=== PATIENT | female | born 1950 | race Caucasian/White ===

== ENCOUNTER 2024-04-24 14:29 | Inpatient (IN) | payer OTHER ==
[2024-04-25 03:29] LABS: Sqamous Epithelial <5 /HPF (None Seen); Urine Bacteria None Seen /HPF (<20); Urine Bilirubin NEGATIVE (Negative); Urine Blood Negative (Negative); Urine Clarity Turbid (Clear); Urine Color Yellow (Yellow); Urine Culture Reflex Order NOT NEEDED; Urine Glucose NEGATIVE (Negative); Urine Ketones NEGATIVE (Negative); Urine Microscopic Reflex YN ORDER UMIC; Urine Mucus Slight /HPF (None Seen); Urine Nitrite NEGATIVE (Negative); Urine Protein NEGATIVE (Negative); Urine RBC <5 /HPF (None Seen); Urine Urobilinogen 1+ (Normal); Urine WBC <5 /HPF (<5)
[2024-04-25 06:08] VITALS: BMI 46.8
[2024-04-25] MEDS ORDERED: ONDANSETRON 4 MG (ODT) TAB PO PRN (06:21)
[2024-04-25] MEDS: LEVOTHYROXINE SOD 0.1 MG TAB PO SCH (07:11)
[2024-04-25] MEDS: LEVOTHYROXINE SOD 0.075 MG TAB PO SCH (07:11)
[2024-04-25] MEDS: INSULIN REGULAR (HUMAN) 100 UNIT/ML SQ SCH (07:12)
[2024-04-25 07:40] LABS: Absolute Eosinophils 0.1 K/uL (0-0.5); Absolute Lymphocytes (CBC) 2.5 K/uL (0.7-4.9); Absolute Monocytes 0.6 K/uL (0.1-1.3); Absolute Neutrophil 2.3 K/uL (1.8-8.0); Basophils % 0.6 % (0-1.3); Eosinophils % 1.8 % (0-4.4); Hematocrit 36.3 % (36.0-45.0); Hemoglobin 11.8 g/dL (12.0-15.0); Lymphocytes % 45.1 % (15.3-44.8); MCH 27.6 pg (27.0-35.0); MCHC 32.6 g/dL (32.0-36.0); MCV 84.8 fL (80-100); MPV 7.7 fL (7.6-11.3); Monocytes % 11.2 % (3.3-12.3); Neutrophils % 41.3 % (41.7-73.7); Nucleated Red Blood Cells % 0.1 % (0-0); Platelets 270 thou/uL (152-406); RBC Red Blood Cell Count 4.28 M/uL (3.86-4.86); Red Cell Distribution Width 22.7 % (12.1-15.2)
[2024-04-25] MEDS: FERROUS SULFATE 325 MG TAB PO SCH (07:47)
[2024-04-25] MEDS: lisinopriL 10 MG TAB PO SCH (07:47)
[2024-04-25] MEDS: APIXABAN 5 MG TABLET PO SCH (07:47)
[2024-04-25] MEDS: ESCITALOPRAM 20 MG TAB PO SCH (07:47)
[2024-04-25 07:56] LABS: Albumin 2.9 g/dL (3.4-5.0); Anion Gap 8.4 mEq/L (5.0-15.0); Potassium 3.4 mEq/L (3.5-5.1); Prealbumin 15.2 mg/dL (20-40)
[2024-04-25 08:29] LABS: Blood Morphology Comment NOTED (NOT SEEN); Platelet Estimate ADEQ; White Blood Cell Scan OK (OK)
[2024-04-25 08:30] LABS: Anisocytosis 1+
[2024-04-25] MEDS: FAMOTIDINE 20 MG TAB PO SCH (09:46)
[2024-04-25] MEDS: ATORVASTATIN 80 MG TAB PO SCH (19:33)
--- NOTE | 2024-04-26 01:02 | HP ---
Date of Admission: 04/25/2024 Time Of Service: 1 p.m. Chief Complaint: "I had a stroke, my left side is weak." History Of Present Illness: Ms. Gottlieb is a 73-year-old patient. She goes by Shorty. She has a h istory of hypertension, dyslipidemia, atrial fibrillation, on Eliquis, dementia, prior bilateral occi pital bilateral cerebellar strokes, right parietal stroke, and morbid obesity. On the 21 of April, she developed more left-sided numbness, weakness, and was seen and eventually life flighted to [facility]. Their evaluation showed the chronic prior strokes as noted with left-sided drif t along with dysmetria and ataxia of the lower extremity on the left. CT scan revealed the chronic i nfarcts, bilateral occipital, bilateral cerebellar, and right parietal strokes. There was no large v essel occlusion. There was some attenuation of the peripheral branches of the posterior cerebral art eries. Her NIH Stroke Scale was repeated and showed she did not have significant left-sided drift, b ut numbness in the face, arm, leg, did improve. TNK was not given as she was already on Eliquis. In tra-arterial thrombolysis also done. She had, however, an MRI which showed an acute right MCA territ ory ischemic infarct involving the right parietotemporal lobe and posterior insular cortex. The nelson sthoracic echocardiogram showed ejection fraction 55% to 60%, and etiology of her stroke was felt to be due to cardioembolic nature and she has actually been noncompliant, only taking the Eliquis once d aily instead of twice daily. She was resumed on Eliquis for atrial fibrillation full dose and educat ed on the importance of being compliant with medications. The patient did state she had lost her hus band 2 years ago and having difficult time with depression and was on Lexapro and that was increased. She was continued on atorvastatin for dyslipidemia, hydration given, she did have stage 2 chronic k idney disease. She has lisinopril for hypertension, proton pump inhibitor, and she had diabetic diet and was addressed as well. She did previously ambulate independently with a single prong cane. She does have a rolling walker and a scooter due to previous strokes. At this point, she requires stand by assistance for eating, grooming, supervision for bed mobility, moderate assistance for upper body dressing, lower body dressing, and toileting, maximum assistance for transferring, moderate assistanc e for ambulating about 60 feet with a rolling walker. She does have some short-term memory and diffi culty with articulation. She is now functioning well below her baseline level and is now admitted to the inpatient rehabilitation unit for physical, occupational, and speech therapy to help her return to her prior level of functioning and decrease the risk of rehospitalization. Past Medical History: As noted above. Allergies: SULFA DRUGS. Medications: Tylenol 650 mg every 4 hours as needed, Eliquis 5 mg twice daily, Lipitor 80 mg at bedt cristina, Tums 500 mg 4 times daily as needed, Lexapro 20 mg daily, Pepcid 20 mg twice daily, ferrous sulf ate 325 mg daily, levothyroxine 0.175 mg daily, Prinivil 10 mg daily, melatonin 3 mg at bedtime, Zofr an 4 mg every 4 hours as needed, Senokot 8.6 mg twice daily, and tramadol 50 mg every 6 hours. Laboratory Studies: White blood cell count 5.6, hemoglobin 11.8, platelets 270. Sodium 143, potassi um 3.4, chloride 108, carbon dioxide 30, BUN is 7, creatinine 0.71, glucose ranged from 92 to 124, ca lcium 8.6, magnesium 2.0, prealbumin 2.9, albumin 15.2. Urinalysis showed turbid clarity, 1+ urobili nogen, otherwise unremarkable. Peripheral smear is okay. Imaging: Brain MRI without contrast on 04/21 shows acute right MCA territory ischemic infarct involv ing the right parietotemporal lobe and the posterior insular cortex. There was no hemorrhagic transf ormation. There are chronic bilateral occipital and cerebellar areas of encephalomalacia from prior ischemic strokes. Family History: Noncontributory. Social History: The patient lives in a single family home with children. No acute issues in terms o f fevers, chills, nausea, vomiting. Some of course difficulty with controlling things in the left carranza nd and otherwise no myalgias, arthralgias, rash. Current Level Of Functioning: Currently, eating is at setup assistance, grooming setup assistance, m aximum assistance for bathing, moderate assistance for upper and lower body dressing and donning and doffing footwear. Maximal assistance for toilet transfers, bed and shower transfers, ambulation 6 fe et moderate assistance with a rolling walker. Physical Examination: Vital Signs: Blood pressure is 127/60, pulse 62, respiratory rate 16, temperature 98.3, oxygen satur ation 95%. General: Ms. Mtz again is sitting in a chair. HEENT: She is normocephalic, atraumatic. Sclerae anicteric. Oropharynx pink and moist. Heart: Irregularly irregular. Abdomen: Soft. Extremities: Show no significant clubbing, cyanosis, or edema. She has loss of proprioception in le ft upper extremity. She has good strength 4/5 proximally and distally in left upper and lower extrem ity, right side actually around 4/5 as well. She has some mild dysmetria in the upper extremity and in the lower extremity on the left. Rehab And Medical Assessment And Plan: Ms. Mtz is a 73-year-old patient, admitted to the [facility] rehabilitation unit with impairment category 01 stroke. Her impairment group code is 01.1, left herber dy involvement, right brain. Her etiologic diagnosis is right MCA territory infarct. She does have comorbidities of decreased mobility, decreased physical functioning, atrial fibrillation, dyslipidemi a, GE reflux, iron deficiency, hypothyroidism, mild pain with of course hypertension. Plan: She will have physical, occupational, and speech therapy 3.5 hours, 5 of 7 days. She will con tinue with all comorbid condition medications which have been noted for hypertension, for hypothyroid ism, managing pain, stroke risk, for GE reflux, and for depression. Comorbidities That Are Impacting Rehabilitation: As noted, the patient did lose her and has been somewhat depressed. She is on antidepressants and that may be adjusted as appropriate. She lucas s have atrial fibrillation, on anticoagulation, is at risk of bleeding, and fall precautions to be ad hered to at all times. Rehab Specific Plan: Ms. Mtz will have physical, occupational, and speech therapy for 3.5 hours, 5 of 7 days, with transferring from bed to chair, to toilet, to wheelchair, on and off the toilet, an d in and out of shower. Also with dressing upper and lower body, donning and doffing footwear. Also with making safe decisions and to ensure she is able to swallow appropriately without risk of aspira tion. Ms. Mtz has a good understanding of the process of admission to the inpatient rehabilitation unit and how she will benefit from physical, occupational, and speech therapy. She will have 24 hours a d ay, 7 days a week, skilled rehabilitation and nursing, daily physician evaluation and management, and social human services assistants evaluation and management for discharge planning, home equipment, and to continue wi th therapy after discharge. If need be, additional help will be provided by the Hospitalist Service. Barriers To Discharge: As noted, she has atrial fibrillation and is on anticoagulation, may be at ri sk of bleeding and she was poorly compliant with medications, may extend her stay. She may have to g o to long term, but the goal will be to go home with family. Length Of Stay: About 10 to 12 days. Disposition: Home with family and continue therapy via Home Health. Prognosis: Good. Code Status: Full code. Rehab Specific Goals: 1. Become independent with upper and lower body dressing and donning and doffing footwear. 2. Independently mobilize to a rolling walker, single prong cane or no assistive device if possible, 250 feet. 3. Go up and down 10 steps with bilateral handrails. 4. Perform all cognitive functioning independently. 5. Perform all ADLs independently. The above goals were reviewed with Ms. Mtz and she is in agreement. By signing this document, I acknowledge I personally performed a full physical examination on Ms. Lasha chavez no later than 24 hours after her admission to the inpatient rehabilitation unit and determined th at she is able to tolerate the above course of treatment at an intensive level for a reasonable perio d of time. A detailed individualized plan of care for her will be completed by hospital day 4 based on the pre-admission screen, history and ph ysical, and therapy evaluations. NEERAJ/MEDINA Voice ID: [id number]
[2024-04-26 06:15] LABS: Anion Gap 7.1 mEq/L (5.0-15.0); Potassium 4.1 mEq/L (3.5-5.1)
[2024-04-27] MEDS: TRAMADOL HCL 50 MG TAB PO PRN (19:03)
[2024-04-27] MEDS: SENOSIDES 8.6 MG TAB PO PRN (19:03)
[2024-04-27] MEDS: MELATONIN 3 MG TABLET PO PRN (19:04)
--- NOTE | 2024-04-29 02:13 | PN ---
Date of Progress Note: 04/28/2024 Time Of Service: 1:25 p.m. Subjective: Ms. Mtz sitting in a chair in her room. She is so far after the therapy. She is dolly y jovial, very communicative, and notes that the left-sided symptoms in the hand which is marginally sensory deficit still is unchanged. She is unable to tell how tightly she is holding onto any object s including paper or any small object as well as larger object. No fevers, chills, nausea, vomiting, myalgias, arthralgias. No significant rash, headache, weight change. Physical Examination: Vital Signs: Blood pressure 122/71, pulse 81, respiratory rate 16, temperature 97.9, oxygen saturati on 99%. General: Ms. Mtz is sitting in a chair. She has significant dexterity issues with her left hand and sensation is very significantly diminished in the left upper and lower extremity compared to the right side and also on the face. Laboratory Studies: White blood cell count 5.6, hemoglobin 11.8, platelets 270. Glucose ranged from 70 to 118. Sodium 140, potassium 4.1, chloride 104, BUN 8, creatinine 0.76, calcium 8.9, hemoglobin A1c 5.4. Urinalysis from the 7th, turbid clarity, 1+ urobilinogen. X-ray/imaging: No new x-rays or imaging. Medications: Tylenol 650 mg every 4 hours as needed, Eliquis 5 mg twice daily, Lipitor 80 mg at bedt cristina, Tums 500 mg 4 times daily, Lexapro 20 mg daily, Pepcid 20 mg twice daily, ferrous sulfate 325 mg daily, Synthroid 0.075 mg daily, Synthroid 0.1 mg daily, Prinivil 10 mg daily, melatonin 3 mg at bed time, Zofran 4 mg every 4 hours as needed, Senokot 8.6 mg twice daily, tramadol 50 mg every 6 hours a s needed. Progress Made With Physical, Occupational, And Speech Therapy: Today with physical therapy, bed mobi lity done with contact guard assistance, multiple fzp-ju-psokl transfers and aufis-ca-ymfzc transfers done with contact guard assistance. She did ambulate with a Rollator 160 feet, 200 feet, and 150 fe et with contact guard assistance, up and down 5 steps with minimal assistance. Mobilized wheelchair 100 feet with minimal assistance. With occupational therapy, multiple functional, mobility issues an d transfers and prior to wheelchair, minimum to contact guard assistance needed. Showering, moderate assistance and maximal assistance for footwear. With speech, moderate verbal cues required to look to her left to locate letters and numbers while scanning. Again moderate verbal cues needed there wi th temporal and spatial orientation concepts, but she did do 100% accuracy with external aids in the room. Assessment: Ms. Mtz is a 73-year-old patient in rehabilitation unit with right-sided stroke. In terms of stroke which is most responsible for deficits and deficits will include the left upper extre mity incoordination, left visual field deficit, left-sided neglect, and she is working very hard to d o well. She has comorbid hypothyroidism, hypertension, constipation, mild pain, depression, dyslipid emia, and fibrillation. Plan: She will continue again with physical, occupational, and speech therapy. Continue comorbid co ndition medications as noted. NEERAJ/MODL Voice ID: [id number] Report ID: [id number]
[2024-04-29] MEDS: SENOSIDES 8.6 MG TAB PO SCH (20:46)
--- NOTE | 2024-04-29 23:39 | PN ---
Date of Progress Note: 04/29/2024 Time Of Service: 1:10 p.m. Subjective: Ms. Mtz is sitting next to her bed. Very happy with therapy, communicating very well and denies any new findings or issues. Review of Systems: No fevers, chills, nausea, vomiting, myalgias, arthralgias. Physical Examination: Vital Signs: Blood pressure is 121/68, pulse 71, respiratory rate 16, temperature 98.5, oxygen satur ation 99%. General: Ms. Mtz again is doing very well, resting comfortably. Neurologic: In terms of her deficits, no significant deficits are noted. She does have the right-si ded weakness from left brain involvement, but again improving very well. She had a right-sided brain stroke and left-sided deficits and she has some left visual neglect and left neglect of her hand pos ition and has sensory loss on the left side. Assessment: She has hypertension, hypothyroidism, depression, dyslipidemia, atrial fibrillation. Plan: She will continue with physical, occupational, and speech therapy 3.5 hours, 5 of 7 days. Con tinue with Eliquis for DVT prophylaxis. Tylenol for pain. Lipitor for dyslipidemia. Lexapro for de pression. Ferrous sulfate for iron deficiency. Synthroid for hypothyroidism. Prinivil for hyperten sharmin control. Melatonin for insomnia. Senokot for constipation. Tramadol for pain control as well. NEERAJ/SHARAL Voice ID: [id number] Report ID: [id number]
[2024-04-30] MEDS: CALCIUM CARBONATE CHEW 500MG TAB PO PRN (00:06)
--- NOTE | 2024-05-01 01:05 | PN ---
Date of Progress Note: 04/30/2024 Time Of Service: 1:39 p.m. Subjective: Ms. Mtz is resting in room. She is working with the occupational therapist. Healing . Again, very well today. Very jovial. Still having significant difficulty keeping up with the sindi cement of her left hand and arm due to her stroke, which affected her sensory perception and fine dex terity more than strength. Review of Systems: Again, no fevers, chills, nausea, vomiting, myalgias, arthralgias, rash. Physical Examination: Vital Signs: Blood pressure is 149/78, pulse 78, respiratory rate 18, temperature 97.7, oxygen 99%. General: Sitting and the therapist is working with her. HEENT: She appears normocephalic, atraumatic. Sclerae anicteric. Oropharynx pink, moist. Neck: Supple. Neuro: Still has significant left visual field deficit, left neglect, and decreased sensory percepti on in the left upper and lower extremity. Laboratory Studies: Blood sugars ranged from 94 to 105. She will have blood sugar checks stopped as she has had normal blood sugars since hospitalized. Progress Made With Physical, Occupational, And Speech Therapy: With physical therapy today, she did perform vvewqb-sx-bcm transfers with standby assistance. Multiple mqe-ix-qhjny transfers with contac t guard assistance. She ambulated with a Rollator 125 feet and 425 feet with contact guard assistanc e. Mobilized a wheelchair 75 feet with minimum assistance and verbal cues. With occupational therap y, she was able to improve motor control, left upper extremity. Some mild decrease in ataxia noted. With speech therapy, she was provided education on left side neglect and visual strategies such as a red line and left margin to assist with attention. She was able to read lines [id number]-lv-[id number] correct ly and answer questions about content with 100% accuracy. Assessment: Ms. Mtz is a 73-year-old patient with stroke impacting right brain and left body in p articular and loss of sensory perception in the left upper extremity and visual field deficit on the left side. She has comorbids, decreased mobility, decreased physical functioning, hypothyroidism, ir on-deficiency, depression, dyslipidemia, risk of stroke, and again deep vein thrombosis with hyperten sharmin, constipation, insomnia. Plan: She will continue with physical, occupational, and speech therapy 3.5 hours, 5 of 7 days. Con tinue all comorbid condition medications that have been noted and she is able to return home safely a t this point. She still has significant left-sided neglect and may end up injuring the left arm as s he is unable to know exactly where it is unless she looks towards the left. NEERAJ/MEDINA Voice ID: [id number] Report ID: [id number]
[2024-05-01 06:57] LABS: Absolute Basophils 0.1 K/uL (0-0.5); Absolute Eosinophils 0.1 K/uL (0-0.5); Absolute Lymphocytes (CBC) 2.7 K/uL (0.7-4.9); Absolute Monocytes 0.5 K/uL (0.1-1.3); Absolute Neutrophil 1.6 K/uL (1.8-8.0); Basophils % 1.6 % (0-1.3); Eosinophils % 2.9 % (0-4.4); Hemoglobin 11.2 g/dL (12.0-15.0); Lymphocytes % 54.4 % (15.3-44.8); MCH 28.2 pg (27.0-35.0); MCHC 32.9 g/dL (32.0-36.0); MCV 85.9 fL (80-100); MPV 7.9 fL (7.6-11.3); Monocytes % 9.5 % (3.3-12.3); Neutrophils % 31.6 % (41.7-73.7); Nucleated Red Blood Cells % 0.2 % (0-0); Platelets 284 thou/uL (152-406); RBC Red Blood Cell Count 3.95 M/uL (3.86-4.86); Red Cell Distribution Width 22.3 % (12.1-15.2)
[2024-05-01 07:12] LABS: Albumin 2.7 g/dL (3.4-5.0); Anion Gap 5.1 mEq/L (5.0-15.0); Magnesium 2.1 mg/dL (1.6-2.4); Potassium 4.1 mEq/L (3.5-5.1); Prealbumin 11.1 mg/dL (20-40)
[2024-05-01 08:49] LABS: Anisocytosis 1+; Blood Morphology Comment NOTED (NOT SEEN); Microcytosis 1+; Platelet Estimate ADEQ; White Blood Cell Scan OK (OK)
[2024-05-01] MEDS: ACETAMINOPHEN 325 MG TABLET PO PRN (21:28)
--- NOTE | 2024-05-02 01:45 | PN ---
Date of Progress Note: 05/01/2024 Subjective: Ms. Mtz is very happy and jovial and is doing well with therapy. Still has the left arm and side neglect from her stroke affecting the right brain. Objective: No fevers, chills, nausea, vomiting, myalgias, arthralgias. No new complaints. Still carranza s difficulty finding objects, using the left hand the left. Physical Examination: Vital Signs: Blood pressure 139/64, pulse 75, respiratory rate 16, temperature 97.9, oxygen saturati on 97%. General: Ms. Mtz is back from the gym, smiling and happy. HEENT: She is normocephalic, atraumatic. Sclerae anicteric. She has significant dexterity issues i n the left upper extremity and unable to really have 2-point discrimination in the left arm. Laboratory Studies: White blood cell count 5.0, hemoglobin 11.2, platelets 284. Sodium 143, potassi um 4.1, chloride 111, carbon dioxide is 31, BUN 12, creatinine 0.73, glucose ranged from 94 to 105, c alcium 8.6, magnesium 2.1. Prealbumin 11.1 and albumin 2.7. Peripheral smear is okay. X-ray/imaging: No new x-rays. Medications: Have been reviewed and remain unchanged. Progress Made With Physical, Occupational, And Speech Therapy: With physical therapy today, she did eyancr-ww-eem transfers independently, multiple zva-wq-kyijw transfers with standby assistance, ambul ated 125 feet and 500 feet with contact guard assistance using a rolling walker. She also worked wit h a Rollator. With occupational therapy, she required supervision for bathing, minimum assistance to initiate stretching of the left upper extremity, verbal cues to help move the vision around so that she can begin to see what is in the left side of her visual field. In terms of her speech, again was looking through the left, pictures seen, details were noted with 100% accuracy and able to recall 3 minutes with after, but 97% accuracy. Assessment: Ms. Mtz is a 73-year-old patient in rehabilitation unit with a stroke affecting the r ight brain and left body. She has sensory dysfunction. She does have hypothyroidism, hypertension, insomnia, constipation, risk of deep vein thrombus, dyslipidemia, depression. She will continue phys ical, occupation, and speech therapy. She will continue with comorbid condition medications as noted . LB/MODL Voice ID: [id number] Report ID: [id number]
[2024-05-02 07:48] VITALS: TEMP 97.8
[2024-05-02 10:26] VITALS: BP 133/71
--- NOTE | 2024-05-02 17:00 | P.RH.PN ---
Estimated Length of Stay: 13 Expected Discharge Date: 05/02/24 Discharge Disposition Plan: Home Family Support: Yes Alf Goal: Mobility, Transfers, Self Care Vital Signs: Last Vital Signs Temp 97.8 F 05/02/24 07:47 Pulse 84 05/02/24 10:25 Resp 18 05/02/24 07:47 BP 133/71 05/02/24 10:25 Pulse Ox 96 05/02/24 07:47 Laboratory: Laboratory Last Values WBC 5.00 thou/uL (4.3-10.9) 05/01/24 06:40 RBC 3.95 M/uL (3.86-4.86) 05/01/24 06:40 Hgb 11.2 g/dL (12.0-15.0) L 05/01/24 06:40 Hct 34.0 % (36.0-45.0) L 05/01/24 06:40 MCV 85.9 fL (80-100) 05/01/24 06:40 MCH 28.2 pg (27.0-35.0) 05/01/24 06:40 MCHC 32.9 g/dL (32.0-36.0) 05/01/24 06:40 RDW 22.3 % (12.1-15.2) H 05/01/24 06:40 Plt Count 284 thou/uL (152-406) 05/01/24 06:40 MPV 7.9 fL (7.6-11.3) 05/01/24 06:40 Neutrophils % 31.6 % (41.7-73.7) L 05/01/24 06:40 Lymphocytes % 54.4 % (15.3-44.8) H 05/01/24 06:40 Monocytes % 9.5 % (3.3-12.3) 05/01/24 06:40 Eosinophils % 2.9 % (0-4.4) 05/01/24 06:40 Basophils % 1.6 % (0-1.3) H 05/01/24 06:40 Absolute Neutrophils 1.6 K/uL (1.8-8.0) L 05/01/24 06:40 Absolute Lymphocytes 2.7 K/uL (0.7-4.9) 05/01/24 06:40 Absolute Monocytes 0.5 K/uL (0.1-1.3) 05/01/24 06:40 Absolute Eosinophils 0.1 K/uL (0-0.5) 05/01/24 06:40 Absolute Basophils 0.1 K/uL (0-0.5) 05/01/24 06:40 Platelet Estimate Adeq 05/01/24 06:40 Anisocytosis 1+ 05/01/24 06:40 Microcytosis 1+ 05/01/24 06:40 Morphology Comment Noted (NOT SEEN) 05/01/24 06:40 Sodium 143 mEq/L (136-145) 05/01/24 06:40 Potassium 4.1 mEq/L (3.5-5.1) 05/01/24 06:40 Chloride 111 mEq/L (98-107) H 05/01/24 06:40 Carbon Dioxide 31 mEq/L (21-32) 05/01/24 06:40 Anion Gap 5.1 mEq/L (5.0-15.0) 05/01/24 06:40 BUN 12 mg/dL (7-18) 05/01/24 06:40 Creatinine 0.73 mg/dL (0.55-1.02) 05/01/24 06:40 Est GFR (CKD-EPI) 86 ml/min (=/>90) L 05/01/24 06:40 Glucose 90 mg/dL (74-106) 05/01/24 06:40 POC Glucose 94 mg/dL (65-120) 04/30/24 11:46 Hemoglobin A1c 5.4 % (4.2-6.3) 04/26/24 05:38 Calcium 8.6 mg/dL (8.5-10.1) 05/01/24 06:40 Magnesium 2.1 mg/dL (1.6-2.4) 05/01/24 06:40 Albumin 2.7 g/dL (3.4-5.0) L 05/01/24 06:40 Prealbumin 11.1 mg/dL (20-40) L 05/01/24 06:40 Urine Color Yellow (Yellow) 04/25/24 02:35 Urine Clarity Turbid (Clear) H 04/25/24 02:35 Urine pH 6.0 (5.0-7.0) 04/25/24 02:35 Ur Specific Voca 1.020 (1.005-1.030) 04/25/24 02:35 Glucose (UA)(Auto) Negative (Negative) 04/25/24 02:35 Urine Ketones Negative (Negative) 04/25/24 02:35 Urine Blood Negative (Negative) 04/25/24 02:35 Urine Nitrite Negative (Negative) 04/25/24 02:35 Urine Bilirubin Negative (Negative) 04/25/24 02:35 Urine Urobilinogen 1+ (Normal) H 04/25/24 02:35 Ur Leukocyte Esterase Negative Murali/uL (Negative) 04/25/24 02:35 Urine RBC <5 /HPF (None Seen) 04/25/24 02:35 Urine WBC <5 /HPF (<5) 04/25/24 02:35 Ur Squamous Epith Cells <5 /HPF (None Seen) 04/25/24 02:35 Urine Bacteria None seen /HPF (<20) 04/25/24 02:35 Urine Mucus Slight /HPF (None Seen) 04/25/24 02:35 Urine Culture Reflexed Not needed 04/25/24 02:35 Urine Total Protein Negative (Negative) 04/25/24 02:35 Smear Scan Ok (OK) 05/01/24 06:40 Weight: 299 lb Wound Present: No Closed Surgical Incision Present: No Negative Pressure Wound Therapy Present: No Physician Update: Her labs were reviewed and are stable. She scored 14 on the BIMS and SLUMS. She has left sided neglect. She is transferring independently. She ambulated up to 500 feet with contact guard assistance using a rolling walker. She requires minimum assistance for dressing due to the left-sided neglect. Summary: Patient's care plan and group home goals have been reviewed and revised as necessary. Please see the Rehabilitation Signature page for all necessary signatures.
== END 2024-05-02 16:55 | disposition home health service (06) | DRG 57 ==
LOC: 5TH 04-25 00:35
PROVIDERS: ADMIT Psychiatry & Neurology Neurology with Special Qualifications in Child Neurology; ATTEND Psychiatry & Neurology Neurology with Special Qualifications in Child Neurology
DX: I69.354 Hemiplegia and hemiparesis following cerebral infarction affecting left non-dominant side (principal); I48.91 Unspecified atrial fibrillation; E78.5 Hyperlipidemia, unspecified; K21.9 Gastro-esophageal reflux disease without esophagitis; E03.9 Hypothyroidism, unspecified; I10 Essential (primary) hypertension; F32.A Depression, unspecified; K59.00 Constipation, unspecified; G47.00 Insomnia, unspecified
CPT/HCPCS: 36415; 80048; 81001; 82040; 82947; 83036; 83735; 84134; 85025; 87086; 87088; 92523; 97110; 97112; 97116; 97129; 97163; 97165; 97530; 97542

== ENCOUNTER 2024-06-25 15:14 | Inpatient (IN) | payer OTHER ==
--- OUTSIDE RECORDS SUMMARY | 2024-06-25 15:18 | XMS REPORT | Clinical Summary ---
Author Name Unknown Organization [facility] Address [address] [place] [address] Care Team Providers Care Gas Meter Installer Name Role Phone Angelica Olson MD Unavailable Anthony Parsons MD Unavailable Rivas Sagastume Unavailable Ritesh Thomas MD Unavailable Ritesh Thomas MD Unavailable Nadeem Victor MD Unavailable [phone] Caryl Peña MD Primary Care Provider [phone] Brenda Silva MD Unavailable [phone] Allergies Active Allergy Reactions Criticality Noted Date Comments Morphine GI Intolerance 06/28/2016 Nsaids (Non-Steroidal Anti-Inflammatory Drug) 07/01/2018 Sulfa (Sulfonamide Antibiotics) Hives 06/19 Medications * This document contains information received from the source organization and may not represent a complete record from that organization. levothyroxine (SYNTHROID, LEVOTHROID) 175 mcg tablet Take 1 tablet (175 mcg) by mouth daily. 7 Active pravastatin (PRAVACHOL) 10 mg tablet Take 1 tablet (10 mg) by mouth daily. 4 7 Active multivitamin (THERAGRAN) tablet Take 1 tablet by mouth daily. Active CHOLECALCIFEROL , VITAMIN D3, (VITAMIN D3 ORAL) Take 1 tablet by mouth daily. Active ASCORBATE CALCIUM (VITAMIN C ORAL) Take 1 tablet by mouth daily. Active escitalopram (LEXAPRO) 10 mg tablet escitalopram 10 mg tablet TAKE 1 TABLET BY MOUTH EVERY DAY Active lisinopril (PRINIVIL,ZESTR IL) 30 mg tablet Take 1 tablet (30 mg) by mouth daily. Active Active Problems Problem Noted Date Diagnosed Date Osteoporosis 05/24/2020 Malignant neoplasm of right female breast 2020 Morbid (severe) obesity due to excess calories 0 07/14/2016 Encounter for preprocedural examination 07/15/19 17 H/O: Stroke in last year 07/14/2016 Mixed hyperlipidemia 07/14/2016 Other abnormal glucose 07/14/2016 Essential (primary) hypertension 07/14/2016 Infiltrating duct carcinoma of overlapping sites of right female breast 06/27/2016 Cancer Staging:Clinical stage from 05/30/2016:Stage IA(T1, N0, M0) - Signed by Malika Robledo NP on 11/24/2019 Encounters * This document contains information received from the source organization and may not represent a complete record from that organization. Date Type Department Care Team Description 08/09/2023 Documentation [facility] Oncology [address] [place] [address], 5th [place] [address] Agnieszka Jurado BSN after 06/26/2023 Immunizations Name Administration Dates Next Due Pfizer SARS-CoV-2 Vaccination (Purple Cap) 10/20 Surgical History Surgery Date Site/Laterality Comments HYSTERECTOMY 02/20/1984 - 02/18/1985 partial GASTRIC BYPASS 02/20/2004 - 02/18/2005 COLONOSCOPY 02/20/2008 - 02/18/2009 ID MASTECTOMY PARTIAL 07/14/2016 Breast/Right Procedure: SEED LOC; SEGMENTAL MASTECTOMY - ; Surgeon: Nadeem Victor MD; Location: [facility]; Service: BREAST ID INTRAOP SENTINEL LYMPH NODE ID W/DYE INJECTION 07/14/2016 Right Procedure: INTRAOPERATIVE LYMPHATIC MAPPING; Surgeon: Nadeem Victor MD; Location: [facility]; Service: BREAST ID BX/EXC LYMPH NODE OPEN DEEP AXILLARY NODE 07/14/2016 Axilla/Right Procedure: SENTINEL NODE BIOPSY - AXILLA; Surgeon: Nadeem Victor MD; Location: [facility]; Service: BREAST Medical History Medical History Date Comments Hypertension Put on meds afte r stroke in May 2015, very low dose Personal history of stroke 05/2015 Mild Stroke Hyperlipidemia Put on meds afte r stroke May 2015, very low dose Menopause 2009 Arthritis developing in carranza nds and back Hypothyroidism Family History Medical History Relation Name Comments -Breast cancer Mother Dina Paez Pass ed at 54 -Breast cancer Sister Nancy Waller Survivor Relation Name Status Comments Mother Dina Paez Sister Nancy Waller Alive Social History Tobacco Use Types Packs/Day Years Used Date Smoking Tobacco: Never Smokeless Tobacco: Never Alcohol Use Standard Drinks/Week Comments No 0 (1 standard drink = 0.6 oz pur e alcohol) Comments No Sex and Gender Information Value Date Recorded Sex Assigned at Not on file Legal Sex Female 2:34 PM CDT Gender Identity Not on file Sexual Orientation Not on file Obstetrics History Para Term AB IAB SAB Ectopic Multiple Livin g Live Births 2 2 Date Outcome GA Total Labor Labor/2nd/3rd Weight Sex Type Anes PTL Leigha A1 A5 Name Clin Para Para Comments DIRECTOR CONSTRUCTION SERVICES History: Menarche: 10 years Age at first parity: 17 history: yes, 2 months control pill use: yes, 15 years Hormone Replacement Therapy use: no Plan of Treatment Health Maintenance Due Date Last Done Comments COVID-19 Vaccine ( season) 10/21/202302/2020 Influenza Vaccine (Season Ended) 2024 Pneumococcal Vaccine: 50+ Years Completed 0, 02/20/2016 Insurance [employer] MEDICARE PPO AENA MEDICARE PPO Advance Directives Documents on File Type Date Recorded Patient Optometrist Expl anation Advance Directives: Medical Power of Recycling Sorter 05/15/2022 Medical Power of Att orney * Full Code (Latest Code Status on File) Date Activated Date Inactivated Comments 07/14/2016 9:03 AM 07/14/2016 1:06 PM Care Teams Gas Meter Installer Relationship Specialty Start Date End Date Angelica Olson MD PCP - External Referring Gynecological Oncology 06/14/16 Anthony Parsons MD [facility] [place] [phone] PCP - External Primary Care Provider Family Practice 06/27/16 Rivas Sagastume [address] [place], [place] [address] [address] PCP - External Follow Up A 06/27/16 Caryl Peña MD [address] [place] [id number] [email or web address] PCP - General Breast Medical Oncology 05/24/20 Ritesh Thomas MD [address] [place] [phone] [email or web address] Breast Medical Oncology 06/28/16 Ritesh Thomas MD [address] [place] [phone] [email or web address] Breast Medical Oncology 07/27/16 Nadeem Victor MD [address] [place] [phone] Consulting Physician Breast Surgery 11/01/16 Brenda Silva MD [address] [place] [phone] [email or web address] Consulting Physician Radiation Oncology 07/27/16
[2024-06-25 15:50] LABS: Absolute Basophils 0.1 K/uL (0-0.5); Absolute Lymphocytes (CBC) 1.9 K/uL (0.7-4.9); Absolute Monocytes 1.2 K/uL (0.1-1.3); Absolute Neutrophil 5.1 K/uL (1.8-8.0); Basophils % 0.9 % (0-1.3); Eosinophils % 0.2 % (0-4.4); Hematocrit 42.2 % (36.0-45.0); Hemoglobin 14.3 g/dL (12.0-15.0); Lymphocytes % 22.6 % (15.3-44.8); MCH 30.1 pg (27.0-35.0); MCHC 33.9 g/dL (32.0-36.0); MCV 88.8 fL (80-100); Monocytes % 14.3 % (3.3-12.3); Nucleated Red Blood Cells % 0.1 % (0-0); Platelets 224 thou/uL (152-406); RBC Red Blood Cell Count 4.76 M/uL (3.86-4.86); Red Cell Distribution Width 17.1 % (12.1-15.2)
--- NOTE | 2024-06-25 15:51 | RAD REPORT ---
EXAMINATION: Ct Stroke Brain Wo Cont CLINICAL INDICATION: Female, 73 years old.STROKE ALERT TECHNIQUE: Axial CT images from the skull base to the vertex without intravenous contrast using a str jorge protocol. Coronal and sagittal reformatted images were created from the data set. One or more of the following dose reduction techniques were used: Automated exposure control, adjustment of the m A and/or kV according to patient size, and/or iterative reconstruction. Unless otherwise specified, incidental findings do not require dedicated imaging follow-up. [id number]. COMPARISON: No prior exam. FINDINGS: INTRACRANIAL: No acute intracranial hemorrhage. No hydrocephalus. No mass effect or midline shift. Mo derate size predominantly right parietal lobe cortical infarct. Remote left medial occipital lobe infarct. Tiny remote appearing left basal ganglia lacunar infarct. Remote right occipital lobe infarc t. VASCULATURE: No visualized abnormalities in the arteries or dural venous sinuses. SCALP/SKULL: No calvarial fracture identified. No acute soft tissue abnormality. SINUSES: The visualized paranasal sinuses are mostly clear. No significant mastoid fluid. IMPRESSION: No definite acute intracranial abnormality. Bilateral cerebral infarcts which are favored chronic. MR I could better establish acuity. The findings were communicated to Dr. Ellison on 06/25/2024 3:45 PM.
[2024-06-25 16:06] LABS: PT Prothrombin Time 17.6 SECONDS (10-13.0); Protime INR 1.58
--- NOTE | 2024-06-25 16:10 | RAD REPORT ---
EXAMINATION: Neck Angio CLINICAL INDICATION: Female, 73 years old. cva TECHNIQUE: Axial CT images were obtained from the aortic arch to the skull base after intravenous con trast utilizing angiographic protocol with 3D post-processing (maximum intensity projection images, volume rendered images and/or shaded surface rendered images). One or more of the following dose redu ction techniques were used: Automated exposure control, adjustment of the mA and/or kV according to patient size, and/or iterative reconstruction. Unless otherwise specified, incidental findings do not require dedicated imaging follow-up. [id number]. NASCET criteria used. Mild 0-49% stenosis Moderate 50-69% stenosis Severe 70-99% stenosis COMPARISON: No prior exam. FINDINGS: AORTA: Normal RIGHT: - CCA: Patent - ICA: Atherosclerotic changes but no flow limiting stenosis. - ECA: Patent LEFT: - CCA: Patent - ICA: Atherosclerotic changes but no flow limiting stenosis. - ECA: Patent VERTEBRAL: Right dominant. Both are patent. SOFT TISSUE: No significant neck soft tissue abnormalities. The visualized lung apices are clear. 3D images confirm these findings. IMPRESSION: No arterial dissection or stenosis identified within the neck.
--- NOTE | 2024-06-25 16:11 | RAD REPORT ---
EXAMINATION: Head angio CLINICAL INDICATION: Female, 73 years old. STROKE ALERT TECHNIQUE: Axial CT images were obtained through the head after intravenous contrast utilizing angiog raphic protocol with 3D post-processing (maximum intensity projection images, volume rendered images and/or shaded surface rendered images). One or more of the following dose reduction technique s were used: Automated exposure control, adjustment of the mA and/or kV according to patient size, and/or iterative reconstruction. Unless otherwise specified, incidental findings do not require dedic ated imaging follow-up. COMPARISON: No prior exam. FINDINGS: RIGHT: ICA: Atherosclerotic calcifications but no flow limiting stenosis. FLAVIA: Patent MCA: Patent CAUL DRESSER: Patent LEFT: ICA: Atherosclerotic calcifications but no flow limiting stenosis. FLAVIA: Patent MCA: Patent CAUL DRESSER: Patent Vertebrobasilar: The vertebral arteries are patent. The basilar artery is normal in appearance. 3D images confirm these findings. IMPRESSION: No occlusion, aneurysm, or hemodynamically significant stenosis identified.
[2024-06-25 16:13] LABS: Albumin 2.8 g/dL (3.4-5.0); Albumin/Globulin Ratio 0.7 (1.1-1.8); Anion Gap 7.7 mEq/L (5.0-15.0); Bilirubin Direct 0.4 mg/dL (0-0.2); Bilirubin Indirect, Calculated 0.8 mg/dL (0.2-0.8); Bilirubin Total 1.2 mg/dL (0.2-1.0); Globulin 4.2 g/dL (2.3-3.5); Magnesium 1.5 mg/dL (1.6-2.4); Potassium 2.7 mEq/L (3.5-5.1); Troponin High Sensitivity 7.2 pg/mL (<58.9)
--- NOTE | 2024-06-25 16:32 | RAD REPORT ---
EXAM: Chest Single View HISTORY: 73 years Female cva COMPARISON: None. FINDINGS: LUNGS/PLEURA: The lungs are clear. No pleural effusions or pneumothorax. No pulmonary edema. Probable linear scarring at the right lung base. CARDIAC/MEDIASTINUM: The cardiac silhouette is within normal limits. UPPER ABDOMEN: No significant abnormality. BONES: No acute abnormality. LINES/TUBES/OTHER: Loop recorder. IMPRESSION: No evidence of acute cardiopulmonary disease.
[2024-06-25 17:21] LABS: Thyroid Stimulating Hormone 13.9 uIU/mL (0.358-3.740)
[2024-06-25] MEDS ORDERED: TRAMADOL HCL 50 MG TAB ONE (17:21)
--- NOTE | 2024-06-25 18:20 | ER ---
Nurse's Notes [facility] Name: Chery Mtz Age: 73 yrs Sex: Female : 1950 Arrival Date: 06/25/2024 Time: 15:14 Bed 4 Private MD: Diagnosis: Acute CVA;Hypokalemia;Hypomagnesemia Presentation: 06/25 15:15 Chief complaint: Patient states: WOKE UP THIS AM WITH LEFT SIDE WEAKNESS AND CONFUSION. db LEFT SIDE PREVIOUS DEFICIT FROM PREVIOUS STROKE. LAST STROKE 1 MONTH AGO. LAST NORMAL YESTERDAY 10AM. Coronavirus screen: Client denies travel out of the [place] in the last 14 days. At this time, the client does not indicate any symptoms associated with coronavirus-19. Ebola Screen: Patient negative for fever greater than or equal to 101.5 degrees Fahrenheit, and additional compatible Ebola Virus Disease symptoms Patient denies exposure to infectious person. Patient denies travel to an Ebola-affected area in the 21 days before illness onset. No symptoms or risks identified at this time. An acute neurological deficit is present. Pre-hospital glucose is not applicable to this patient. Initial Sepsis Screen: Does the patient meet any 2 criteria? No. Patient's initial sepsis screen is negative. Does the patient have a suspected source of infection? No. Patient's initial sepsis screen is negative. Risk Assessment: Do you want to hurt yourself or someone else? Patient reports no desire to harm self or others. Onset of symptoms was June 24, 2024 at 10:00. 15:15 Method Of Arrival: Wheelchair db 15:15 Acuity: LEILA 2 db Triage Assessment: 15:15 The onset of the patients symptoms was June 24, 2024 at 10:00. General: Appears in no db apparent distress. comfortable, Behavior is calm, cooperative. Pain: Denies pain. Neuro: Level of Consciousness is awake, alert, obeys commands, Oriented to person, place, time, situation, Reports weakness. Stroke Activation: Symptom onset > 6 hours Physician: ED Attending; Name: ; Notified At: ; Arrived At: Physician: Mid-Level Provider; Name: ; Notified At: ; Arrived At: Physician: [not used]; Name: ; Notified At: ; Arrived At: Physician: [not used]; Name: ; Notified At: ; Arrived At: Physician: [not used]; Name: ; Notified At: ; Arrived At: Historical: - Allergies: 15:27 Sulfa (Sulfonamide Antibiotics); db - PMHx: 15:27 STROKE; db - Immunization history:: Adult Immunizations unknown. - Infectious Disease History:: Denies. - Social history:: Smoking status: Patient denies any tobacco usage or history of. - Family history:: not pertinent. Screenin:00 [facility] ED Fall Risk Assessment (Adult) History of falling in the last 3 months, jb4 including since admission No falls in past 3 months (0 pts) Confusion or Disorientation Yes (5 pts) Intoxicated or Sedated No (0 pts) Impaired Gait Yes (1 pt) Mobility Assist Device Used No (0 pt) Altered Elimination No (0 pt) Score/Fall Risk Level 3 or more points = High Risk Oriented to surroundings, Maintained a safe environment. Abuse screen: Denies threats or abuse. Nutritional screening: No deficits noted. Tuberculosis screening: No symptoms or risk factors identified. Assessment: 15:17 Reassessment: CODE STROKE CALLED. db 15:19 Reassessment: Code stroke called overhead. ph 15:22 TNKase (Tenecteplase) Screening: Contraindications: Patient reports onset of signs and jb4 symptoms of stroke greater than 6 hours ago: Yes. Is the patient on Aspirin, Heparin, or Warfarin: Yes. Rapidly improving condition or minor deficit: Yes. 15:22 VAN Scoring: Arm Drift: Minor drift Visual Disturbance: No visual disturbance noted. jb4 Aphasia: No aphasia noted. Neglect: No neglect noted. General: Appears in no apparent distress. comfortable, Behavior is calm, cooperative, appropriate for age. Pain: Denies pain. Neuro: Level of Consciousness is awake, alert, obeys commands, Oriented to person, place, time, situation. Cardiovascular: Patient's skin is warm and dry. Respiratory: Airway is patent Respiratory effort is even, unlabored, Respiratory pattern is regular, symmetrical. Derm: Skin is intact, Skin is pink, warm \T\ dry. Musculoskeletal: Circulation, motion, and sensation intact. Range of motion: intact in all extremities. 16:00 [place] Swallow Protocol Brief Cognitive Screen What is your name? Normal, Where are you jb4 right now? Normal, What year is it? Normal. Oral Mechanism Examination Facial Symmetry: Normal, Motion: Normal, Lip Closure: Normal, Oral Mechanism Result: Normal. 3 oz Water Swallow Challenge: Pt able to drink all water without stopping, coughing, choking or throat clearing: Yes Result: PASS MD Notified: Brad Ellison MD. 16:40 Reassessment: Patient appears in no apparent distress at this time. Patient and/or jb4 family updated on plan of care and expected duration. Pain level reassessed. Patient is alert, oriented x 3, equal unlabored respirations, skin warm/dry/pink. 18:00 Reassessment: Patient appears in no apparent distress at this time. Patient and/or jb4 family updated on plan of care and expected duration. Pain level reassessed. Patient is alert, oriented x 3, equal unlabored respirations, skin warm/dry/pink. 19:00 Reassessment: Patient appears in no apparent distress at this time. Patient and/or jb4 family updated on plan of care and expected duration. Pain level reassessed. Patient is alert, oriented x 3, equal unlabored respirations, skin warm/dry/pink. 20:00 Reassessment: Patient appears in no apparent distress at this time. Patient and/or jb4 family updated on plan of care and expected duration. Pain level reassessed. Patient is alert, oriented x 3, equal unlabored respirations, skin warm/dry/pink. 21:00 Reassessment: Patient appears in no apparent distress at this time. Patient and/or jb4 family updated on plan of care and expected duration. Pain level reassessed. Patient is alert, oriented x 3, equal unlabored respirations, skin warm/dry/pink. 22:00 Reassessment: Patient appears in no apparent distress at this time. Patient and/or jb4 family updated on plan of care and expected duration. Pain level reassessed. Patient is alert, oriented x 3, equal unlabored respirations, skin warm/dry/pink. 23:00 Reassessment: Patient appears in no apparent distress at this time. Patient and/or jb4 family updated on plan of care and expected duration. Pain level reassessed. Patient is alert, oriented x 3, equal unlabored respirations, skin warm/dry/pink. Vital Signs: 15:15 BP 104 / 81; Pulse 86; Resp 18; Temp 99.1(O); Pulse Ox 98% ; db 17:00 BP 119 / 90; Pulse 75; Resp 16; Pulse Ox 98% on R/A; jb4 17:45 BP 101 / 84; Pulse 78; Resp 16; Pulse Ox 98% ; jb4 19:00 BP 140 / 90; Pulse 84; Resp 16; Pulse Ox 96% on R/A; jb4 20:00 BP 128 / 93; Pulse 81; Resp 16; Pulse Ox 95% on R/A; jb4 21:00 BP 120 / 75; Pulse 87; Resp 16; Pulse Ox 90% on R/A; jb4 22:00 BP 108 / 63; Pulse 86; Resp 16; Pulse Ox 90% on R/A; jb4 23:00 BP 115 / 63; Pulse 87; Resp 16; Pulse Ox 93% on R/A; jb4 21:00 Pt sleeping jb4 NIH Stroke Scale Scores: 15:22 NIHSS Score: 2 jb4 23:00 NIHSS Score: 1 jb4 ED Course: 15:15 Arm band placed on Patient placed in an exam room. db 15:18 Patient arrived in ED. al6 15:20 Brad Ellison MD is Attending Physician. rt 15:26 Triage completed. db 15:33 CT Stroke Brain w/o Contrast In Process Unspecified. EDMS 15:45 CT Head Angio In Process Unspecified. EDMS 15:45 CT Neck Angio In Process Unspecified. EDMS 15:50 Stroke CXR 1 View In Process Unspecified. EDMS 17:30 Víctor Camejo, RN is Primary Nurse. jb4 18:19 Truong Lamar MD is Hospitalizing Provider. rt 19:00 Patient has correct armband on for positive identification. Provided Education on: plan jb4 of care. 23:00 No provider procedures requiring assistance completed. Patient admitted, IV remains in jb4 place. Administered Medications: 17:27 Drug: traMADol PO 50 mg PO once Route: PO; jb4 19:15 Drug: Potassium Chloride IV 40 mEq IV at calculated rate once; administer over 4 hours jb4 Route: IV; Rate: calculated rate; Site: right antecubital; 20:12 Drug: Magnesium Sulfate IVPB 2 grams IVPB once over 2 hrs Route: IVPB; Infused Over: 2 jb4 hrs; Site: right antecubital; 20:12 Drug: Potassium PO Effervescent Tablet 50 mEq PO once; dissolve in 4 ounces of water or jb4 juice Route: PO; Point of Care Testing: Blood Glucose: 15:15 Blood Glucose: 80 mg/dL; db Ranges: Outcome: 18:20 Decision to Hospitalize by Provider. rt 23:11 Admitted to Med/surg accompanied by tech, via wheelchair, room 209, vc1 23:11 Condition: stable 23:11 Instructed on the need for admit, 23:12 Patient left the ED. vc1 NIH Stroke Scale - NIH Stroke Score Date: 06/25/2024 Time: 15:22 Total Score = 2 10. Dysarthria (speech clarity - read or repeat words) - 0(Normal) 11. Extinction and Inattention (visual/tactile/auditory/spatial/personal) - 0(No abnormality) 1a. Level of Consciousness (LOC) - 0(Alert) 1b. Level of Consciousness (LOC) (Month \T\ Age) - 0(Both) 1c. LOC Commands (Open \T\ Closes Eyes/Front Desk Person) - 0(Both) 2. Best Gaze (Lateral Gaze Paresis) - 0(Normal) 3. Visual Field Loss - 0(No visual loss) 4. Facial Palsy - 0(Normal) 5a. Left Arm: Motor (10-second hold) - 1(Drift) 5b. Right Arm: Motor (10-second hold) - 0(No drift) 6a. Left Leg: Motor (5-second hold - always test supine) - 1(Drift) 6b. Right Leg: Motor (5-second hold - always test supine) - 0(No drift) 7. Limb Ataxia (finger/nose \T\ heel/driscoll - test with eyes open) - 0(Absent) 8. Sensory Loss (pinprick arms/legs/face) - 0(Normal) 9. Best Language: Aphasia (description/naming/reading) - 0(No aphasia) Initials: jb4 NIH Stroke Scale - NIH Stroke Score Date: 06/25/2024 Time: 23:00 Total Score = 1 10. Dysarthria (speech clarity - read or repeat words) - 0(Normal) 11. Extinction and Inattention (visual/tactile/auditory/spatial/personal) - 0(No abnormality) 1a. Level of Consciousness (LOC) - 0(Alert) 1b. Level of Consciousness (LOC) (Month \T\ Age) - 0(Both) 1c. LOC Commands (Open \T\ Closes Eyes/Front Desk Person) - 0(Both) 2. Best Gaze (Lateral Gaze Paresis) - 0(Normal) 3. Visual Field Loss - 0(No visual loss) 4. Facial Palsy - 0(Normal) 5a. Left Arm: Motor (10-second hold) - 0(No drift) 5b. Right Arm: Motor (10-second hold) - 0(No drift) 6a. Left Leg: Motor (5-second hold - always test supine) - 1(Drift) 6b. Right Leg: Motor (5-second hold - always test supine) - 0(No drift) 7. Limb Ataxia (finger/nose \T\ heel/driscoll - test with eyes open) - 0(Absent) 8. Sensory Loss (pinprick arms/legs/face) - 0(Normal) 9. Best Language: Aphasia (description/naming/reading) - 0(No aphasia) Initials: jb4 Signatures: Dispatcher [employer] Bijal Rothman RN RN Víctor Camejo RN RN jb4 Jo Robertson RN RN vc1 Sherri Landrum, MICHAEL RN db Brad Ellison MD MD rt Nusrat Arce al6
--- NOTE | 2024-06-25 18:20 | EDPHYS ---
Physician Documentation [facility] Name: Chery Mtz Age: 73 yrs Sex: Female : 1950 Arrival Date: 06/25/2024 Time: 15:14 Bed 4 Private MD: ED Physician Brad Ellison HPI: 06/25 17:44 This 73 yrs old Female presents to ER via Wheelchair with complaints of S/S of Possible rt Stroke. 17:44 Patient had a recent admission for stroke with minor left-sided deficits residual. rt Patient states that she woke up this morning with worsening weakness, worsening on the left side. Denies other symptoms at this time, denies other acute complaints, symptoms are moderate in severity, no other aggravating or alleviating factors. . Historical: - Allergies: 15:27 Sulfa (Sulfonamide Antibiotics); db - PMHx: 15:27 STROKE; db - Immunization history:: Adult Immunizations unknown. - Infectious Disease History:: Denies. - Social history:: Smoking status: Patient denies any tobacco usage or history of. - Family history:: not pertinent. ROS: 17:44 Constitutional: Negative for fever, chills, and weight loss, Cardiovascular: Negative rt for chest pain, palpitations, and edema, Respiratory: Negative for shortness of breath, cough, wheezing, and pleuritic chest pain, Abdomen/GI: Negative for abdominal pain, nausea, vomiting, diarrhea, and constipation, MS/Extremity: Negative for injury and deformity, Skin: Negative for injury, rash, and discoloration, 17:44 Neuro: Positive for weakness, Negative for loss of consciousness, Exam: 17:44 Constitutional: This is a well developed, well nourished patient who is awake, alert, rt and in no acute distress. Head/Face: Normocephalic, atraumatic. Chest/axilla: Normal chest wall appearance and motion. Nontender with no deformity. No lesions are appreciated. Cardiovascular: Regular rate and rhythm with a normal S1 and S2. No gallops, murmurs, or rubs. Normal PMI, no JVD. No pulse deficits. Respiratory: Lungs have equal breath sounds bilaterally, clear to auscultation and percussion. No rales, rhonchi or wheezes noted. No increased work of breathing, no retractions or nasal flaring. Abdomen/GI: Soft, non-tender, with normal bowel sounds. No distension or tympany. No guarding or rebound. No evidence of tenderness throughout. Skin: Warm, dry with normal turgor. Normal color with no rashes, no lesions, and no evidence of cellulitis. MS/ Extremity: Pulses equal, no cyanosis. Neurovascular intact. Full, normal range of motion. 17:44 ECG was reviewed by the Attending Physician. 17:44 Neuro: Drift noted on left upper, left lower extremity, strength and sensation otherwise intact, no cranial nerve deficits, no ataxia on [id number], speech normal, Vital Signs: 15:15 BP 104 / 81; Pulse 86; Resp 18; Temp 99.1(O); Pulse Ox 98% ; db 17:00 BP 119 / 90; Pulse 75; Resp 16; Pulse Ox 98% on R/A; jb4 17:45 BP 101 / 84; Pulse 78; Resp 16; Pulse Ox 98% ; jb4 19:00 BP 140 / 90; Pulse 84; Resp 16; Pulse Ox 96% on R/A; jb4 20:00 BP 128 / 93; Pulse 81; Resp 16; Pulse Ox 95% on R/A; jb4 21:00 BP 120 / 75; Pulse 87; Resp 16; Pulse Ox 90% on R/A; jb4 22:00 BP 108 / 63; Pulse 86; Resp 16; Pulse Ox 90% on R/A; jb4 23:00 BP 115 / 63; Pulse 87; Resp 16; Pulse Ox 93% on R/A; jb4 21:00 Pt sleeping jb4 NIH Stroke Scale Scores: 15:22 NIHSS Score: 2 jb4 23:00 NIHSS Score: 1 jb4 MDM: 15:20 Medical Screening Exam initiated rt 18:20 Differential diagnosis: CVA, metabolic disorder, Electrolyte disturbance. TNKase rt (Tenecteplase) Screening: Contraindications: Other: Timing of onset. Data reviewed: vital signs, nurses notes, lab test result(s), EKG, radiologic studies. Consideration of Admission/Observation Patient was admitted/placed on observation. Management of patient was discussed with the following: Hospitalist: Agrees to admit. Independent interpretation of the following test(s) in the Emergency Department CT Scan: My interpretation is No intracranial hemorrhage seen on interpretation of CT scan images. Care significantly affected by the following chronic conditions: CVA. Counseling: I had a detailed discussion with the patient and/or guardian regarding the historical points, exam findings, and any diagnostic results supporting the discharge/admit diagnosis, lab results, radiology results, the need for further work-up and treatment in the hospital. Response to treatment: There is no appreciated change of the patient's symptoms at this time. 06/25 15:20 Order name: Basic Metabolic Panel rt 06/25 15:20 Order name: CBC with Diff; Complete Time: 16:34 rt 06/25 15:20 Order name: Hepatic Function rt 06/25 15:20 Order name: High Sensitivity Troponin rt 06/25 15:20 Order name: Magnesium rt 06/25 15:20 Order name: Protime (+inr); Complete Time: 16:34 rt 06/25 15:20 Order name: Ptt, Activated; Complete Time: 16:34 rt 06/25 15:22 Order name: glucometer results - FOR PT WITH NO ID; Complete Time: 16:34 hb 06/25 15:37 Order name: TSH; Complete Time: 17:39 rt 06/25 15:37 Order name: UA W/ Microscopic rt 06/25 17:24 Order name: T4 Free; Complete Time: 17:39 EDMS 06/25 18:19 Order name: CREATININE WHOLE BLOOD; Complete Time: 18:53 EDMS 06/25 19:20 Order name: Phosphorus EDMS 06/25 20:33 Order name: CBC with Automated Diff EDMS 06/25 20:33 Order name: CBC with Automated Diff EDMS 06/25 20:33 Order name: Comprehensive Metabolic Panel EDMS 06/25 20:33 Order name: Comprehensive Metabolic Panel EDMS 06/25 15:20 Order name: CT Head Angio; Complete Time: 16:34 rt 06/25 15:20 Order name: CT Neck Angio; Complete Time: 16:34 rt 06/25 15:20 Order name: CT Stroke Brain w/o Contrast; Complete Time: 16:34 rt 06/25 15:20 Order name: Stroke CXR 1 View; Complete Time: 16:34 rt 06/25 20:17 Order name: CONS Physician Consult EDMS 06/25 20:19 Order name: Physical Therapy Consult EDMS 06/25 20:32 Order name: IRF Screen EDMS 06/25 20:32 Order name: Physical Therapy Consult [facility] 06/25 20:32 Order name: Speech Therapy Consult [facility] 06/25 15:20 Order name: Accucheck; Complete Time: 15:22 rt 06/25 15:20 Order name: Cardiac monitoring; Complete Time: 16:36 rt 06/25 15:20 Order name: EKG - Nurse/Tech; Complete Time: 16:36 rt 06/25 15:20 Order name: IV Saline Lock; Complete Time: 16:36 rt 06/25 15:20 Order name: Labs collected and sent; Complete Time: 16:36 rt 06/25 15:20 Order name: NPO; Complete Time: 16:36 rt 06/25 15:20 Order name: O2 Per Protocol; Complete Time: 16:36 rt 06/25 15:20 Order name: O2 Sat Monitoring; Complete Time: 16:36 rt 06/25 15:20 Order name: Stroke Swallow Screen; Complete Time: 17:30 rt EC:44 Rate is 73 beats/min. Rhythm is regular, Normal Sinus Rhythm with No ectopy. Left axis rt deviation noted. ND interval is normal. QRS interval is normal. QT interval is normal. No Q waves. No ST changes noted. Interpreted by me. Administered Medications: 17:27 Drug: traMADol PO 50 mg PO once Route: PO; jb4 19:15 Drug: Potassium Chloride IV 40 mEq IV at calculated rate once; administer over 4 hours jb4 Route: IV; Rate: calculated rate; Site: right antecubital; 20:12 Drug: Magnesium Sulfate IVPB 2 grams IVPB once over 2 hrs Route: IVPB; Infused Over: 2 jb4 hrs; Site: right antecubital; 20:12 Drug: Potassium PO Effervescent Tablet 50 mEq PO once; dissolve in 4 ounces of water or jb4 juice Route: PO; Point of Care Testing: Blood Glucose: 15:15 Blood Glucose: 80 mg/dL; db Ranges: Critical Glucose Levels:Adult <50 mg/dl or >400 mg/dl <40 mg/dl or >180 mg/dl Disposition Summary: 06/25/24 18:20 Hospitalization Ordered Notes: Hospitalization Status: Observation rt Provider: Truong Lamar rt Location: Telemetry/MedSurg (observation) rt Condition: Stable rt Problem: an ongoing problem rt Symptoms: are unchanged rt Bed/Room Type: Standard rt Room Assignment: 209(06/25/24 21:30) sp Diagnosis - Acute CVA rt - Hypokalemia rt - Hypomagnesemia [place] Forms: - Medication Reconciliation Form rt - SBAR form rt - Leadership Thank You Letter rt Critical care time excluding procedures: 18:20 Critical care time: Bedside Care: 30 minutes, Consultation: 5 minutes. Total time: 35 rt minutes NIH Stroke Scale - NIH Stroke Score Date: 06/25/2024 Time: 15:22 Total Score = 2 10. Dysarthria (speech clarity - read or repeat words) - 0(Normal) 11. Extinction and Inattention (visual/tactile/auditory/spatial/personal) - 0(No abnormality) 1a. Level of Consciousness (LOC) - 0(Alert) 1b. Level of Consciousness (LOC) (Month \T\ Age) - 0(Both) 1c. LOC Commands (Open \T\ Closes Eyes/Autoclave Operator) - 0(Both) 2. Best Gaze (Lateral Gaze Paresis) - 0(Normal) 3. Visual Field Loss - 0(No visual loss) 4. Facial Palsy - 0(Normal) 5a. Left Arm: Motor (10-second hold) - 1(Drift) 5b. Right Arm: Motor (10-second hold) - 0(No drift) 6a. Left Leg: Motor (5-second hold - always test supine) - 1(Drift) 6b. Right Leg: Motor (5-second hold - always test supine) - 0(No drift) 7. Limb Ataxia (finger/nose \T\ heel/driscoll - test with eyes open) - 0(Absent) 8. Sensory Loss (pinprick arms/legs/face) - 0(Normal) 9. Best Language: Aphasia (description/naming/reading) - 0(No aphasia) Initials: jb4 NIH Stroke Scale - NIH Stroke Score Date: 06/25/2024 Time: 23:00 Total Score = 1 10. Dysarthria (speech clarity - read or repeat words) - 0(Normal) 11. Extinction and Inattention (visual/tactile/auditory/spatial/personal) - 0(No abnormality) 1a. Level of Consciousness (LOC) - 0(Alert) 1b. Level of Consciousness (LOC) (Month \T\ Age) - 0(Both) 1c. LOC Commands (Open \T\ Closes Eyes/Autoclave Operator) - 0(Both) 2. Best Gaze (Lateral Gaze Paresis) - 0(Normal) 3. Visual Field Loss - 0(No visual loss) 4. Facial Palsy - 0(Normal) 5a. Left Arm: Motor (10-second hold) - 0(No drift) 5b. Right Arm: Motor (10-second hold) - 0(No drift) 6a. Left Leg: Motor (5-second hold - always test supine) - 1(Drift) 6b. Right Leg: Motor (5-second hold - always test supine) - 0(No drift) 7. Limb Ataxia (finger/nose \T\ heel/driscoll - test with eyes open) - 0(Absent) 8. Sensory Loss (pinprick arms/legs/face) - 0(Normal) 9. Best Language: Aphasia (description/naming/reading) - 0(No aphasia) Initials: jb4 Signatures: Dispatcher [employer] EDMS Bc Valentino MD MD cha Pinkerton, Shawna sp Bryson, James, RN RN jb4 Sherri Landrum RN RN db Brad Ellison MD MD rt Corrections: (The following items were deleted from the chart) 15:21 15:21 BASIC METABOLIC PANEL+C.LAB.BRZ ordered. EDMS EDMS 15:21 15:21 CBC+H.LAB.BRZ ordered. EDMS EDMS 15:21 15:21 HEPATIC FUNCTION+C.LAB.BRZ ordered. EDMS EDMS 15:21 15:21 Troponin High Sensitivity+C.LAB.BRZ ordered. EDMS EDMS 15:21 15:21 MAGNESIUM+C.LAB.BRZ ordered. EDMS EDMS 15:21 15:21 PROTIME (+INR)+COAG.LAB.BRZ ordered. EDMS EDMS 15:21 15:21 PTT, ACTIVATED+COAG.LAB.BRZ ordered. EDMS EDMS 15:21 15:21 Head Angio+CT.RAD.BRZ ordered. EDMS EDMS 15:21 15:21 Neck Angio+CT.RAD.BRZ ordered. EDMS EDMS 15:22 15:22 CT-STROKE BRAIN W/O CONTRAST+CT.RAD.BRZ ordered. EDMS EDMS 15:22 15:22 Chest Single View+RAD.RAD.BRZ ordered. EDMS EDMS 19:15 18:55 Misc. Order ordered. [facility] jb4 : 18:54 PHOSPHORUS+C.LAB.BRZ ordered. EDMS EDMS : 18:20 rt sp
[2024-06-25] MEDS ORDERED: NA CHLORIDE 0.9% 250 ML ONE (19:02)
[2024-06-25] MEDS ORDERED: KCL 20 MEQ/100 mL IVPB 200 ML IV ONE (19:02)
[2024-06-25 19:11] LABS: Urine Bacteria <20 /HPF (<20); Urine Bilirubin NEGATIVE (Negative); Urine Blood Negative (Negative); Urine Clarity Clear (Clear); Urine Color Yellow (Yellow); Urine Crystals Unidentified Few /HPF (None Seen); Urine Glucose NEGATIVE (Negative); Urine Ketones NEGATIVE (Negative); Urine Micro Reflex YN NO BILL MICROSCOPIC; Urine Mucus Slight /HPF (None Seen); Urine Nitrite NEGATIVE (Negative); Urine Protein TRACE (Negative); Urine RBC <5 /HPF (None Seen); Urine Urobilinogen 2+ (Normal); Urine WBC <5 /HPF (<5); Urine pH 7.5 (5.0-7.0)
[2024-06-25 19:15] LABS: Specific Gravity > 1.030 (1.005-1.030)
[2024-06-25 19:32] LABS: Phosphorus 2.3 mg/dL (2.5-4.9)
[2024-06-25] MEDS ORDERED: POTASSIUM 25 MEQ EFFERV TAB ONE (19:52)
[2024-06-25] MEDS ORDERED: Magnesium Sulfate 2gm IVPB 2 G/50 ML BAG IV ONE (19:53)
--- NOTE | 2024-06-25 23:25 | P.HP ---
Certification for Inpatient Patient admitted to: Inpatient With expected LOS: <2 Midnights Patient will require the following post-hospital care: Home Health Services Practitioner: I am a practitioner with admitting privileges, knowledge of patient current condition, hospital course, and medical plan of care. Services: Services provided to patient in accordance with Admission requirements found in Title 42 Section 412.3 of the Code of Federal Regulations Patient History Date of Service: 06/26/24 Reason for admission: Strokelike symptoms, weakness, hypokalemia, hypomagnesemia. History of Present Illness: Patient is a pleasant 73-year-old female with past medical history of recent stroke in April 2024, hypercholesteremia, hypothyroidism, anxiety, depression, hypertension, brought to the ER today due to strokelike symptoms, generalized body weakness. According to the patient daughter, she states today patient became extremely weak, was not able to to ambulate, due to unsteady gait,, states she fell this morning. States also patient became confused, and complain of headache. With a concern of a possible reoccurrence of another stroke, timmy guillory was then brought to ER. On admission assessment, patient was fully awake, alert and oriented, able to communicate appropriately, follows all commands appropriate. Patient has residual weakness on the left side resulting from her previous stroke. No sign noted at this time of of any recent acute stroke. Consulted Dr. Marte, was informed that he was out of town. He states usually when patient has a recent stroke, there is a tendency for her to be extremely weak. He states he will be going out of town for his daughter graduation, states since his CT of the head, and CTA of the neck and head is negative it sounds like there is no acute stroke. Patient is able to eat with no difficulties. (1) generalized body weakness, fall, confusion, possible strokelike symptoms. -CT head negative, CTA neck and head are negative for any acute process. -Order MRI head in AM. -Physical therapy consult to evaluate and treat. -Continue Eliquis 5 mg p.o. twice daily. (2) chronic hypercholesterolemia. -Continue home medication atorvastatin 80 mg p.o. daily. (3) chronic hypothyroidism. -Continue home medication levothyroxine 100 mcg p.o. daily. (4) explained entire treatment plan to the patient and family present at bedside, solicit questions answered voiced understanding. (5) chronic depression. -Continue home medication escitalopram 20 mg p.o. daily. Allergies Sulfa (Sulfonamide Antibiotics) Allergy (Verified 06/26/24 00:02) Rash Home Medications: Apixaban [Eliquis] 5 mg PO BID 04/25/24 Atorvastatin Calcium [Lipitor] 80 mg PO BEDTIME 04/25/24 Escitalopram [Lexapro*] 20 mg PO DAILY 04/25/24 Famotidine [Pepcid*] 20 mg PO BID 04/25/24 Levothyroxine [Synthroid*] 0.1 mg PO DAILY 04/25/24 lisinopriL [Prinivil*] 20 mg PO DAILY 04/25/24 Ferrous Sulfate [Ferrous Sulfate*] 325 mg PO DAILY tab 05/01/24 Trazodone [Desyrel*] 50 mg PO BEDTIME 06/26/24 hydrOXYzine HCL [Atarax] 50 mg PO SEECOM 06/26/24 traMADol HCL [Ultram*] 50 mg PO Q6HR PRN 06/26/24 - Past Medical/Surgical History Diabetic: Yes -: AFIB -: CVA -: DM2 -: CKD2 -: DEPRESSION -: HTN -: DEMENTIA -: LUMPECTOMY RT BREAST 2020 -: PARTIAL HYSTERECTOMY -: MALISSA -: TONSILLECTOMY -: TOTAL BIBI KNEE REPLACEMENT -: RT WRIST FX - Social History Alcohol use: No CD- Drugs: No Caffeine use: Yes Physical Examination - Vital Signs Temperature: 99.1 F Blood Pressure: 140/90 Pulse: 84 Respirations: 16 - Studies Laboratory Data (last 24 hrs) 06/25/24 06/25/24 06/25/24 18:54 15:35 15:35 WBC 8.30 Hgb 14.3 Hct 42.2 Plt Count 224 PT 17.6 H INR 1.58 APTT 33.0 Sodium Potassium BUN Creatinine Glucose Phosphorus Cancelled Magnesium Total Bilirubin AST ALT Alkaline Phosphatase 06/25/24 15:35 WBC Hgb Hct Plt Count PT INR APTT Sodium 137 Potassium 2.7 L BUN 7 Creatinine 0.99 Glucose 118 H Phosphorus 2.3 L Magnesium 1.5 L Total Bilirubin 1.2 H AST 25 ALT 24 Alkaline Phosphatase 134 H Assessment and Plan - Advance Directives Does patient have a Living Will: No Does patient have a Durable POA for Healthcare: Yes
[2024-06-25 23:46] VITALS: BMI 40.8
[2024-06-26] MEDS: TRAZODONE 50 MG TABLET PO SCH (00:53)
[2024-06-26] MEDS: ATORVASTATIN 40 MG TAB PO SCH (00:53)
[2024-06-26] MEDS: APIXABAN 5 MG TABLET PO SCH (00:53)
[2024-06-26 06:01] LABS: Absolute Lymphocytes (CBC) 2.3 K/uL (0.7-4.9); Absolute Monocytes 1.2 K/uL (0.1-1.3); Absolute Neutrophil 4.3 K/uL (1.8-8.0); Basophils % 0.5 % (0-1.3); Eosinophils % 0.2 % (0-4.4); Hematocrit 36.4 % (36.0-45.0); Hemoglobin 12.5 g/dL (12.0-15.0); Lymphocytes % 29.6 % (15.3-44.8); MCH 30.7 pg (27.0-35.0); MCHC 34.2 g/dL (32.0-36.0); MCV 89.6 fL (80-100); MPV 8.6 fL (7.6-11.3); Monocytes % 15.3 % (3.3-12.3); Neutrophils % 54.4 % (41.7-73.7); Nucleated Red Blood Cells % 0.1 % (0-0); Platelets 201 thou/uL (152-406); RBC Red Blood Cell Count 4.07 M/uL (3.86-4.86); Red Cell Distribution Width 17.3 % (12.1-15.2)
[2024-06-26] MEDS: LEVOTHYROXINE SOD 0.088 MG TAB PO SCH (06:11)
[2024-06-26 06:20] LABS: Albumin 2.2 g/dL (3.4-5.0); Albumin/Globulin Ratio 0.6 (1.1-1.8); Bilirubin Total 1.1 mg/dL (0.2-1.0); Globulin 3.5 g/dL (2.3-3.5); Protein, Total 5.7 g/dL (6.4-8.2)
[2024-06-26] MEDS: PNEUMOCOCCAL VACCINE 0.5 ML IMVAC ONE (08:00)
[2024-06-26] MEDS: CLOPIDOGREL 75 MG TABLET PO SCH (10:30)
[2024-06-26] MEDS: lisinopriL 20 MG TAB PO SCH (10:30)
[2024-06-26] MEDS: ESCITALOPRAM 20 MG TAB PO SCH (10:31)
[2024-06-26] MEDS: FAMOTIDINE 20 MG TAB PO SCH (10:31)
--- NOTE | 2024-06-26 11:41 | EKG ---
Test Date: 2024-06-25 Test Time: 16:04:01 Avionics Engineer: VIDHI MEASUREMENT RESULTS: Intervals: Rate: 73 IL: 182 QRSD: 90 QT: 430 QTc: 473 [place]: P: 44 IL: 182 QRS: -29 T: 5 INTERPRETIVE STATEMENTS: Normal sinus rhythm Inferior infarct, age undetermined Anterior infarct, age undetermined Abnormal ECG No previous ECG available for comparison Electronically Signed On 06-26-24 11:39:09 CDT by Zion Wilkins
--- NOTE | 2024-06-26 13:47 | P.PN ---
Subjective Date of Service: 06/26/24 Chief Complaint: Strokelike symptoms, weakness, hypokalemia, hypomagnesemia. Subjective: No chest pain or shortness of breath. No nausea or vomiting. No abdominal pain. No obvious bleeding. Looks comfortable in the bed. Weakness improving. Objective: General appearance: Alert and comfortable CVS: Normal S1 and S2 Lungs: Clear to auscultation bilaterally Abdomen: Soft, bowel sounds present, no tenderness Extremities: No lower extremity edema SUBSTATION OPERATOR CHIEF: Moves all 4 extremities, 5/5, no facial weakness. Physical Examination - Vital Signs Temperature: 97.9 F Blood Pressure: 122/85 Pulse: 75 Respirations: 16 Pulse Ox (%): 96 - Studies Laboratory Data (last 24 hrs) 06/25/24 06/25/24 06/25/24 18:54 15:35 15:35 WBC 8.30 Hgb 14.3 Hct 42.2 Plt Count 224 PT 17.6 H INR 1.58 APTT 33.0 Sodium Potassium BUN Creatinine Glucose Phosphorus Cancelled Magnesium Total Bilirubin AST ALT Alkaline Phosphatase 06/25/24 15:35 WBC Hgb Hct Plt Count PT INR APTT Sodium 137 Potassium 2.7 L BUN 7 Creatinine 0.99 Glucose 118 H Phosphorus 2.3 L Magnesium 1.5 L Total Bilirubin 1.2 H AST 25 ALT 24 Alkaline Phosphatase 134 H Assessment And Plan - Plan (1) generalized body weakness, fall, confusion, possible strokelike symptoms. -CT head negative, CTA neck and head are negative for any acute process. -MRI head pending -Neurology consult pending -Physical therapy consult to evaluate and treat. -Continue Eliquis 5 mg p.o. twice daily. (2) hypercholesterolemia. -Continue atorvastatin 80 mg p.o. daily. (3) chronic hypothyroidism. -Continue home medication levothyroxine 100 mcg p.o. daily. - TSH slightly elevated but free T4 normal, need to follow-up with PCP with repeat labs. (4) hypokalemia: Replace and monitor. (5) chronic depression. -Continue home medication escitalopram 20 mg p.o. daily. Plan discussed with patient and nursing staff, discharge plan depending on clinical progress.
[2024-06-26] MEDS: POTASSIUM CL SA 10 MEQ TAB PO ONE (16:40)
[2024-06-27 08:54] LABS: Anion Gap 9.2 mEq/L (5.0-15.0); Magnesium 1.9 mg/dL (1.6-2.4); Phosphorus 2.5 mg/dL (2.5-4.9); Potassium 3.2 mEq/L (3.5-5.1)
--- NOTE | 2024-06-27 12:04 | RAD REPORT ---
EXAMINATION: Brain W/Wo Cont CLINICAL INDICATION: Female, 73 years old. Repeat strokelike symptoms TECHNIQUE: Multiplanar multisequence MR images of the brain were obtained with and without intravenou s contrast. Unless otherwise specified, incidental findings do not require dedicated imaging follow-up. [id number]. COMPARISON: CT 06/25/2024 FINDINGS: INTRACRANIAL: Findings consistent with late acute/subacute on chronic infarct in the right parietal r egion. There is areas of diffusion restriction with matched low signal on ADC however this does enhance.. This is a small to moderate size remote infarct. Remote right occipital and left paramedian occipital lobe infarct. No significant mass effect or midline shift.No hydrocephalus. No significant white matter disease.Moderate cerebral atrophy. Abnormal cortical enhancement is present at the suspected site of infarct in the right parietal lobe. VASCULATURE: Normal signal voids in the larger intracranial arteries and dural venous sinuses. SINUSES: The paranasal sinuses are predominantly clear.No mastoid effusions. BONE: The marrow signal pattern is within normal limits. IMPRESSION: Right parietal late acute on chronic infarct as evidenced by diffusion restriction and gyral enhancem ent. Remote bilateral occipital lobe infarcts.
[2024-06-27] MEDS: POTASSIUM PHOS IN 0.9 % NACL 15 MMOL/250 ML BAG IV ONE (12:26)
[2024-06-27] MEDS: POTASSIUM CL SA 10 MEQ TAB PO ONE ×2 (13:53→15:12)
--- NOTE | 2024-06-27 14:01 | P.PN ---
Subjective Date of Service: 06/27/24 Chief Complaint: Strokelike symptoms, weakness, hypokalemia, hypomagnesemia. Subjective: No chest pain or shortness of breath. No nausea or vomiting. No abdominal pain. No obvious bleeding. Looks comfortable in the bed. Weakness improving. Objective: General appearance: Alert and comfortable CVS: Normal S1 and S2 Lungs: Clear to auscultation bilaterally Abdomen: Soft, bowel sounds present, no tenderness Extremities: No lower extremity edema ELECTRO MECHANICAL DESIGNER: Moves all 4 extremities, 5/5, no facial weakness. Physical Examination - Vital Signs Temperature: 97.7 F Blood Pressure: 107/67 Pulse: 84 Respirations: 16 Pulse Ox (%): 97 Assessment And Plan - Plan (1) generalized body weakness, fall, confusion, possible stroke like symptoms. -CT head negative, CTA neck and head are negative for any acute process. -MRI head showed acute on chronic stroke -Neurology consult pending -Physical therapy -Continue Eliquis and statin -get echo -hold BP meds. (2) hypercholesterolemia. -Continue atorvastatin 80 mg p.o. daily. (3) chronic hypothyroidism. -Continue home medication levothyroxine 100 mcg p.o. daily. - TSH slightly elevated but free T4 normal, need to follow-up with PCP with repeat labs. (4) hypokalemia: Replace and monitor. (5) chronic depression. -Continue home medication escitalopram 20 mg p.o. daily. 6. h/o afib: cont eliquis. Plan discussed with patient and nursing staff, discharge plan depending on clinical progress. d/w daughter in law by phone, she prefers patient to go to rehab.
--- NOTE | 2024-06-27 14:43 | ECHO ---
HEIGHT: 5 ft 8 in WEIGHT: 269 lb 0 oz DATE OF STUDY: 06/27/[address]: Adolfo Trujillo 2-DIMENSIONAL: YES M.MODE: YES DOPPLER: YES COLOR FLOW: YES TDS: YES PORTABLE: YES DEFINITY: NO BUBBLE STUDY: NO DIAGNOSIS: STROKE CARDIAC HISTORY: CATHERIZATION: NO SURGERY: NO PROSTHETIC VALVE: NO PACEMAKER: NO MEASUREMENTS (cm) DIASTOLIC (NORMALS) SYSTOLIC (NORMALS) IVSd 1.0 (0.6-1.2) LA Diam 3.9 (1.9-4.0) LVEF 59% LVIDd 4.0 (3.5-5.7) LVIDs 2.7 (2.0-3.5) %FS 31% LVPWd 1.1 (0.6-1.2) Ao Diam 2.7 (2.0-3.7) 2 DIMENSIONAL ASSESSMENT: RIGHT ATRIUM: NORMAL LEFT ATRIUM: NORMAL RIGHT VENTRICLE: NORMAL LEFT VENTRICLE: NORMAL TRICUSPID VALVE: MILD TRICUSPID REGURGITATION MITRAL VALVE: MILD MITRAL REGURGITATION PULMONIC VALVE: NORMAL AORTIC VALVE: NORMAL PERICARDIAL EFFUSION: NONE AORTIC ROOT: NORMAL LEFT VENTRICULAR WALL MOTION: NORMAL. DOPPLER/COLOR FLOW: SEE BELOW. COMMENTS: 1. NORMAL LEFT VENTRICULAR EJECTION FRACTION 55-60%. 2. NORMAL WALL MOTION. 3. GRADE I DIASTOLIC DYSFUNCTION. 4. MILD MITRAL REGURGITATION 5. MILD TRICUSPID REGURGITATION. TECHNOLOGIST: JOSHUA HA
[2024-06-27] MEDS: NA CHLORIDE 0.9% 1,000 ML IV SCH (15:12)
[2024-06-28 06:32] LABS: Absolute Eosinophils 0.1 K/uL (0-0.5); Absolute Lymphocytes (CBC) 1.7 K/uL (0.7-4.9); Absolute Monocytes 1.2 K/uL (0.1-1.3); Absolute Neutrophil 5.2 K/uL (1.8-8.0); Basophils % 0.3 % (0-1.3); Eosinophils % 0.8 % (0-4.4); Hematocrit 39.3 % (36.0-45.0); Hemoglobin 13.2 g/dL (12.0-15.0); Lymphocytes % 21.1 % (15.3-44.8); MCH 30.1 pg (27.0-35.0); MCHC 33.5 g/dL (32.0-36.0); MCV 89.9 fL (80-100); MPV 8.6 fL (7.6-11.3); Monocytes % 14.2 % (3.3-12.3); Neutrophils % 63.6 % (41.7-73.7); Platelets 206 thou/uL (152-406); RBC Red Blood Cell Count 4.37 M/uL (3.86-4.86)
[2024-06-28 06:53] LABS: Anion Gap 8.9 mEq/L (5.0-15.0); Magnesium 1.8 mg/dL (1.6-2.4); Phosphorus 2.6 mg/dL (2.5-4.9); Potassium 3.9 mEq/L (3.5-5.1)
--- NOTE | 2024-06-28 15:27 | P.PN ---
Date of Service: 06/28/24 Subjective: No new issues. Resting comfortably in bed Objective: General appearance: Alert and comfortable CVS: Normal S1 and S2 Lungs: Clear to auscultation bilaterally Abdomen: Soft, bowel sounds present, no tenderness Extremities: No lower extremity edema CONTRACT CLERK: Moves all 4 extremities, 5/5, no facial weakness. Physical Examination - Vital Signs Temperature: 97.7 F Blood Pressure: 107/67 Pulse: 84 Respirations: 16 Pulse Ox (%): 97 Assessment And Plan - Plan (1) generalized body weakness, fall, confusion, possible stroke like symptoms. -CT head negative, CTA neck and head are negative for any acute process. -MRI head showed acute on chronic stroke -Neurology consult pending -Physical therapy -Continue Eliquis and statin -get echo -hold BP meds. -Start Plavix? (2) hypercholesterolemia. -Continue atorvastatin 80 mg p.o. daily. (3) chronic hypothyroidism. -Continue home medication levothyroxine 100 mcg p.o. daily. - TSH slightly elevated but free T4 normal, need to follow-up with PCP with repeat labs. (4) hypokalemia: Replace and monitor. (5) chronic depression. -Continue home medication escitalopram 20 mg p.o. daily. 6. h/o afib: cont eliquis. Plan discussed with patient and nursing staff, discharge plan depending on clinical progress. d/w daughter in law by phone, she prefers patient to go to rehab.
[2024-06-28] MEDS: hydrOXYzine HCL 25 MG TAB PO PRN (21:38)
[2024-06-29] MEDS: ASPIRIN EC 81 MG TAB PO SCH (10:36)
--- NOTE | 2024-06-29 14:45 | P.PN ---
Date of Service: 06/29/24 Subjective: No new issues. Resting comfortably in bed. We discussed going to inpatient rehab Objective: General appearance: Alert and comfortable CVS: Normal S1 and S2 Lungs: Clear to auscultation bilaterally Abdomen: Soft, bowel sounds present, no tenderness Extremities: No lower extremity edema GUIDANCE SECRETARY: Moves all 4 extremities, 5/5, no facial weakness. Physical Examination - Vital Signs Temperature: 97.7 F Blood Pressure: 107/67 Pulse: 84 Respirations: 16 Pulse Ox (%): 97 Assessment And Plan - Plan (1) generalized body weakness, fall, confusion, possible stroke like symptoms. -CT head negative, CTA neck and head are negative for any acute process. -MRI head showed acute on chronic stroke -Neurology consult pending -Physical therapy -Continue Eliquis and statin -get echo -hold BP meds. -Start aspirin -Hold Plavix for now, discussed with Dr. Marte (2) hypercholesterolemia. -Continue atorvastatin 80 mg p.o. daily. (3) chronic hypothyroidism. -Continue home medication levothyroxine 100 mcg p.o. daily. - TSH slightly elevated but free T4 normal, need to follow-up with PCP with repeat labs. (4) hypokalemia: Replace and monitor. (5) chronic depression. -Continue home medication escitalopram 20 mg p.o. daily. 6. h/o afib: cont eliquis. Plan discussed with patient and nursing staff, discharge plan depending on clinical progress. d/w daughter in law by phone, she prefers patient to go to rehab.
[2024-06-29] MEDS: Ringers Lactate 1,000 ML IV SCH (18:00)
[2024-06-29 21:20] LABS: Specific Gravity 1.017 (1.005-1.030); Sqamous Epithelial <5 /HPF (None Seen); Urine Bacteria None Seen /HPF (<20); Urine Bilirubin NEGATIVE (Negative); Urine Blood Negative (Negative); Urine Clarity Turbid (Clear); Urine Color Yellow (Yellow); Urine Culture Reflex Order NOT NEEDED; Urine Glucose NEGATIVE (Negative); Urine Ketones NEGATIVE (Negative); Urine Microscopic Reflex YN ORDER UMIC; Urine Mucus Slight /HPF (None Seen); Urine Nitrite NEGATIVE (Negative); Urine Protein TRACE (Negative); Urine RBC <5 /HPF (None Seen); Urine Urobilinogen 4+ (Over) (Normal); Urine WBC <5 /HPF (<5)
--- NOTE | 2024-06-30 07:08 | P.PN ---
Patient was seen and examined. Events of the last 24 hours have been noted. Spoke with with [place] regarding patient's clinical picture after evaluating and examining the patient independently. I performed a substantial part of the MDM during this patient's care today. I personally made or approved the documented management plan and acknowledge its risk of complications. I agree with the findings and documentation provided in the [place]'s notes. According to the [id number], patient is having hallucinations. Patient is still not herself. Her strength is improving, but she is altered. <Mani Doyle - Last Filed: 06/30/24 17:53> Date of Service: 06/30/24 subjective Intermittent confusion, PT eval, fall precaution, No leukocytosis, afebrile, Physical Examination - Vital Signs Reviewed Objective: General appearance: Alert and comfortable CVS: Normal S1 and S2 Lungs: Clear to auscultation bilaterally Abdomen: Soft, + nontender bowel sounds Extremities: No lower extremity edema STILL PHOTOGRAPHER: Moves all 4 extremities, 5/5, generalized weakness Neurological, intermittent confusion, Assessment And Plan - Plan (1) metabolic encephalopathy acute (2) Fall acute (3) generalized body weakness (4) possible stroke like symptoms. -CT head negative, CTA neck and head are negative for any acute process. -MRI head showed acute on chronic stroke -Neurology consult pending -Physical therapy -Continue Eliquis and statin -get echo -hold BP meds. -Start aspirin -Hold Plavix for now, discussed with Dr. Marte (5) hypercholesterolemia. -Continue atorvastatin 80 mg p.o. daily. (6) chronic hypothyroidism. -Continue home medication levothyroxine 100 mcg p.o. daily. - TSH slightly elevated but free T4 normal, need to follow-up with PCP with repeat labs. (7) hypokalemia: Replace and monitor. (8) chronic depression. -Continue home medication escitalopram 20 mg p.o. daily. (90. h/o afib: cont eliquis. Plan discussed with patient and nursing staff, discharge plan depending on clinical progress. d/w daughter in law by phone, she prefers patient to go to rehab. <Inessa Cardoza - Last Filed: 06/30/24 18:18>
[2024-06-30] MEDS ORDERED: ACETAMINOPHEN 500 MG TAB PO PRN (17:43)
[2024-06-30] MEDS: ESCITALOPRAM 20 MG TAB PO SCH (21:09)
[2024-06-30 22:48] VITALS: O2SAT 100
--- NOTE | 2024-07-01 10:44 | P.PN ---
Date of Service: 07/01/24 subjective More alert tearfull today, Patient is refusing IPR, request to DC home with [facility]. Physical Examination - Vital Signs Reviewed Objective: General appearance: Alert, answering questions appropriately CVS: Normal S1 and S2 Lungs: Clear to auscultation bilaterally Abdomen: Soft, + nontender bowel sounds Extremities: No lower extremity edema SR. PAYROLL MANAGER: Moves all 4 extremities, 5/5, generalized weakness Neurological, no focal deficits, Moves all 4 extremities, 5/5, Assessment And Plan - Plan (1) metabolic encephalopathy acute improving (2) Fall acute (3) generalized body weakness (4) possible stroke like symptoms. -CT head negative, CTA neck and head are negative for any acute process. -MRI head showed acute on chronic stroke -Neurology consult pending -Physical therapy -Continue Eliquis and statin -get echo -hold BP meds. -Start aspirin -Hold Plavix for now, discussed with Dr. Marte (5) hypercholesterolemia. -Continue atorvastatin 80 mg p.o. daily. (6) chronic hypothyroidism. -Continue home medication levothyroxine 100 mcg p.o. daily. - TSH slightly elevated but free T4 normal, need to follow-up with PCP with repeat labs. (7) hypokalemia: Replace and monitor. (8) chronic depression. -Continue home medication escitalopram 20 mg p.o. daily. (90. h/o afib: cont eliquis. (10) positive for bilirubin in the urine, no abdominal pain, no ureteral stone seen on CT UA negative for UTI Plan discussed with patient and nursing staff, discharge plan depending on clinical progress. d/w daughter in law by phone, she prefers patient to go to rehab.
[2024-07-01] MEDS: NA CHLORIDE 0.9% 1,000 ML IV SCH (14:20)
--- NOTE | 2024-07-01 15:38 | RAD REPORT ---
EXAMINATION: Abdomen Pelvis Wo Contrast CLINICAL INDICATION: Female, 73 years old.eval urobiliribin TECHNIQUE: CT abdomen and pelvis was performed, without IV contrast, as per department protocol. Axia l, sagittal and coronal reconstructions were obtained. One or more of the following dose reduction techniques were used: Automated exposure control, adjustment of the mA and/or kV according to the pat ient size, and/or iterative reconstruction. Unless otherwise specified, incidental findings do not require dedicated imaging follow-up. PC0022. IV CONTRAST: Not administered. COMPARISON: None FINDINGS: The lack of intravenous contrast limits the sensitivity of this exam for evaluation of solid visceral organs, vascular structures, and retroperitoneum. LOWER CHEST: Probable scarring versus subsegmental atelectasis in the right lung base.No significant pericardial effusion. Mild coronary artery calcifications. UPPER GI: Gastric band in place. LIVER: Enlarged caudate with possible mild cirrhotic changes. No focal mass appreciated on this nonco ntrast CT. GALLBLADDER/BILE DUCTS: Cholecystectomy. Mild extra-hepatic biliary ductal dilatation is likely relat ed to the post-cholecystectomy state. Consider correlating with LFT's.? PANCREAS: No mass, ductal dilation, or john-pancreatic fluid. SPLEEN: Innumerable splenic calcifications consistent with remote granulomas disease. ADRENALS: No adrenal masses. KIDNEYS AND URETERS: No hydronephrosis.Limited evaluation for renal lesions in the absence of IV cont rast.No renal calculi.As the ABDOMINAL AORTA AND OTHER VESSELS: Mild atherosclerotic changes. PERITONEUM: No abnormal free fluid. No free air. LYMPH NODES: No pathologic lymphadenopathy. ABDOMINAL WALL: Unremarkable SMALL BOWEL/COLON: Small bowel has normal course and caliber. No colonic wall thickening or pericolon ic inflammatory changes.Nonvisualized appendix but no secondary signs of acute appendicitis. URINARY BLADDER: Underdistended but grossly unremarkable. REPRODUCTIVE ORGANS: Uterus surgically absent. No adnexal abnormality. MUSCULOSKELETAL: Multilevel degenerative changes in the spine. No acute fracture. Grade 1 anterolisth esis of L4 and L5. ADDITIONAL FINDINGS: None. IMPRESSION: No acute findings within the abdomen or pelvis. Incidental findings as noted above.
--- NOTE | 2024-07-02 01:42 | CON ---
Reason For Consultation: Consultation was called because of possible new stroke. History Of Present Illness: Ms. Mtz is a 73-year-old patient, who was recently in the inpatient r ehabilitation unit where she had a right MCA stroke with left-sided weakness that was more acute back in April of this year. She was admitted on 04/25/2024 for inpatient rehab and discharged on 025. Again, a stroke in the right MCA. She had left-sided weakness, decreased mobility. She had de creased physical functioning, in addition to chronic strokes in both posterior and occipital regions. After rehabilitation, the patient did well, but went home and over the weekend developed more confu sharmin, diffuse weakness, and apparent visual hallucinations. The patient's daughter and the patient t hought that she was seen people walking through the windows and calling family members by not the cor rect titles. While hospitalized, her electrolytes were found to be off with a very low potassium fran und 2.7. On admission, glucose was around 118, and very slightly elevated direct bilirubin. Her thy roid stimulating hormone level was very elevated to 13.9 with a free T4 of 1.09. Liver function stud ies otherwise unremarkable. Magnesium low at 1.5 and her urinalysis suggested the possibility of a m ild dehydration and urine cultures are pending. She had electrolyte correction and was able to inter act appropriately. When I saw with the patient, she wanted to go home to do therapy on outpatient [facility]. I had a conversation with the patient's daughter, who wanted the patient going to inpatient [facility] abilitation and it was explained to the patient's daughter how the patient is doing and her wishes sh ould be followed, although there is a power of ip technology transactions attorney. The patient herself was able to clearly sta te what she wants to do. She is aware of herself, where she is, and did not want to go to inpatient rehabilitation again. The patient began to ambulate, was able to walk to the bathroom, by tomorrow w ill be ambulating more with physical therapy and is recommended that the patient continue therapy whe rever she is and to have 24-hour care and supervision at least for a few weeks until she has returned back to her baseline level of functioning. Past Medical History: As noted above. Allergies: SULFA ANTIBIOTIC. Medications: Tylenol 500 mg every 6 hours as needed, Eliquis 5 mg twice daily for atrial fibrillatio n, aspirin 81 mg daily, Lipitor 80 mg at bedtime, Lexapro 20 mg twice daily, Pepcid 20 mg twice daily as well, Atarax 50 mg every 6 hours as needed, Synthroid 0.088 mg daily. She is receiving sodium ch loride at 75 cc an hour, trazodone 50 mg at bedtime. Family History: Noncontributory. Laboratory Studies: Complete blood count differential is unremarkable. INR 1.58. Sodium 139; potas sium 3.9, which was corrected; chloride 107; carbon dioxide 27; BUN 6; creatinine 0.75; glucose 109; calcium 8.4; phosphorus 2.6; magnesium 1.8. Her CT scan of the head showed no acute ischemic or hemo rrhagic findings. Old strokes were noted. MRI of the brain done on 06/27/2024 showed right parietal late acute on chronic infarct and remote bilateral occipital infarcts. These are consistent with th e patient's infarctions that she had in April of this year. Physical Examination: Vital Signs: Blood pressure 135/79, pulse 76, respiratory rate 16, temperature 98.5, oxygen saturati on 97%. Weight 169 pounds, height 5 feet, BMI . General: Ms. Mtz is resting comfortably. She is in no acute distress. HEENT: She does have the visual disturbances making it difficult for her to fully appreciate all obj ects in front of her vision. EXTREMITIES: She does have some mild residual left-sided weakness, upper and lower extremity. Mild asymmetry of the face on the left side. Otherwise good excursions in the face and strong extremities bilaterally. Mild decreased sensation, left compared to right upper and lower extremity. Deficits on the left compared to the right upper and lower extremity. Assessment And Plan: Ms. Mtz is a 73-year-old patient with a subacute to chronic stroke in the [facility] MCA territory with weakness on the left side that has improved significantly. She has bilateral occipital strokes and has visualizations related to that. She has significant electrolyte abnormalit ies, which is now corrected and she should be moving towards her baseline level of functioning which she is currently. She does have fibrillation on Eliquis and she obviously has had multiple strokes i n different vascular territories and should continue with Eliquis. The comorbid condition also stabl y managed at this point. She does have an elevated TSH and may require an adjustment to her Synthroi d dosage. At this point, the patient should be discharged home and may continue therapy on an outpat ient basis, especially if there is someone there to provide transportation and at least 24 hour care supervision while the patient at home to help her make safe decisions and reduce her fall risk. No a dditional neurological workup recommended at this time. She may be discharged home and follow up in [facility] within the month. HERBIE Voice ID: [id number] Report ID: [id number]
[2024-07-02] MEDS: ASPIRIN EC 81 MG TAB PO SCH (07:52)
--- NOTE | 2024-07-02 08:52 | P.PN ---
Date of Service: 07/02/24 subjective Physical Examination - Vital Signs Reviewed Objective: General appearance: Alert, answering questions appropriately CVS: Normal S1 and S2 Lungs: Clear to auscultation bilaterally Abdomen: Soft, + nontender bowel sounds Extremities: No lower extremity edema EVICTION SPECIALIST: Moves all 4 extremities, 5/5, generalized weakness Neurological, no focal deficits, Moves all 4 extremities, 5/5, Assessment And Plan - Plan (1) metabolic encephalopathy acute improving (2) Fall acute (3) generalized body weakness (4) possible stroke like symptoms. -CT head negative, CTA neck and head are negative for any acute process. -MRI head showed acute on chronic stroke -Neurology consult pending -Physical therapy -Continue Eliquis and statin -get echo -hold BP meds. -Start aspirin -Hold Plavix for now, discussed with Dr. Marte (5) hypercholesterolemia. -Continue atorvastatin 80 mg p.o. daily. (6) chronic hypothyroidism. -Continue home medication levothyroxine 100 mcg p.o. daily. - TSH slightly elevated but free T4 normal, need to follow-up with PCP with repeat labs. (7) hypokalemia: Replace and monitor. (8) chronic depression. -Continue home medication escitalopram 20 mg p.o. daily. (90. h/o afib: cont eliquis. (10) positive for bilirubin in the urine, no abdominal pain, no ureteral stone seen on CT UA negative for UTI Plan discussed with patient and nursing staff, discharge plan depending on clinical progress. d/w daughter in law by phone, she prefers patient to go to rehab.
[2024-07-02 12:25] VITALS: TEMP 97.9
[2024-07-02 16:47] VITALS: BP 127/75
--- NOTE | 2024-07-03 17:18 | P.DS ---
Admission Date: 06/25/24 Discharge Date: 07/02/24 Disposition: DC HOME/HOME HEALTH CARE Discharge Condition: GOOD Reason for Admission: Strokelike symptoms, weakness, hypokalemia, hypomagnesemia. Brief History of Present Illness: 73-year-old female with past medical history of recent stroke in April 2024, hypercholesteremia, hypothyroidism, anxiety, depression, hypertension, brought to the ER today due to strokelike symptoms, generalized body weakness. According to the patient daughter, she states today patient became extremely weak, was not able to to ambulate, due to unsteady gait,, states she fell this morning. States also patient became confused, and complain of headache. With a concern of a possible reoccurrence of another stroke, patient was then brought to ER. On admission assessment, patient was fully awake, alert and oriented, able to communicate appropriately, follows all commands appropriate. Patient has residual weakness on the left side resulting from her previous stroke. No sign noted at this time of of any recent acute stroke. Consulted Dr. Marte, was informed that he was out of town. He states usually when patient has a recent stroke, there is a tendency for her to be extremely weak. He states he will be going out of town for his daughter graduation, states since his CT of the head, and CTA of the neck and head is negative it sounds like there is no acute stroke. Patient is able to eat with no difficulties. 73-year-old female with past medical history of recent stroke in April 2024, hypercholesteremia, hypothyroidism, anxiety, depression, hypertension, brought to the ER today due to strokelike symptoms, generalized body weakness. According to the patient daughter, she states today patient became extremely weak, was not able to to ambulate, due to unsteady gait,, states she fell this morning. States also patient became confused, and complain of headache. With a concern of a possible reoccurrence of another stroke, patient was then brought to ER. On admission assessment, patient was fully awake, alert and oriented, able to communicate appropriately, follows all commands appropriate. Patient has residual weakness on the left side resulting from her previous stroke. No sign noted at this time of of any recent acute stroke. Consulted Dr. Marte, was informed that he was out of town. He states usually when patient has a recent stroke, there is a tendency for her to be extremely weak. He states he will be going out of town for his daughter graduation, states since his CT of the head, and CTA of the neck and head is negative it sounds like there is no acute stroke. Patient is able to eat with no difficulties. Objective: General appearance: Alert, answering questions appropriately CVS: Normal S1 and S2 Lungs: Clear to auscultation bilaterally Abdomen: Soft, + nontender bowel sounds Extremities: No lower extremity edema PARTS FABRICATOR: Moves all 4 extremities, 5/5, generalized weakness Neurological, no focal deficits, Moves all 4 extremities, 5/5, Hospital Course: 73-year-old female with past medical history of recent stroke in April 2024, hypercholesteremia, hypothyroidism, anxiety, depression, hypertension, brought to the ER today due to strokelike symptoms, generalized body weakness. According to the patient daughter, she states today patient became extremely weak, was not able to to ambulate, due to unsteady gait,, states she fell this morning. States also patient became confused, and complain of headache. With a concern of a possible reoccurrence of another stroke, patient was then brought to ER. On admission assessment, patient was fully awake, alert and oriented, able to communicate appropriately, follows all commands appropriate. She was seen by Neurology, PT, she has improved cognition, plan to discharge home with C, PT, SN Assesment - Plan (1) metabolic encephalopathy acute improving (2) Fall acute (3) generalized body weakness (4) possible stroke like symptoms. -CT head negative, CTA neck and head are negative for any acute process. -MRI head showed acute on chronic stroke, seen by neurology, no focal deficits -Physical therapy -Continue Eliquis and statin -hold BP meds. -Start aspirin -Hold Plavix for now, discussed with Dr. Marte (5) hypercholesterolemia. -Continue atorvastatin 80 mg p.o. daily. (6) chronic hypothyroidism. -Continue home medication levothyroxine 100 mcg p.o. daily. - TSH slightly elevated but free T4 normal, need to follow-up with PCP with repeat labs. (7) hypokalemia: Replaced in patient (8) chronic depression. -Continue home medication escitalopram 20 mg p.o. daily. (90. h/o afib: cont eliquis. (10) positive for bilirubin in the urine, CT neg for acute findings no abdominal pain, no ureteral stone seen on CT UA negative for UTI Continue home medicines as previously prescribed GOAL: Clear understanding of disease process INSTRUCTIONS: Physician Discharge Instructions: -Follow-up with PCP in 1 to 2 weeks -Please call Dr. Doyle at [phone] if any questions regarding hospital stay -Please call nursing station at [phone] if any nursing or medication questions -Return to the emergency room if symptoms worsen Diet: ADA, low sodium Activity: Fall precautions Vital Signs/Physical Exam: Temp Pulse Resp BP Pulse Ox 97.9 F 89 14 127/75 96 07/02/24 16:00 07/02/24 16:00 07/02/24 16:00 07/02/24 16:00 07/02/24 16:00 Laboratory Data at Discharge: WBC 8.10 thou/uL (4.3-10.9) 06/28/24 06:08 Hgb 13.2 g/dL (12.0-15.0) 06/28/24 06:08 Hct 39.3 % (36.0-45.0) 06/28/24 06:08 Plt Count 206 thou/uL (152-406) 06/28/24 06:08 PT 17.6 SECONDS (10-13.0) H 06/25/24 15:35 INR 1.58 06/25/24 15:35 APTT 33.0 SECONDS (27.2-37.4) 06/25/24 15:35 Sodium 139 mEq/L (136-145) 06/28/24 06:08 Potassium 3.9 mEq/L (3.5-5.1) D 06/28/24 06:08 BUN 6 mg/dL (7-18) L 06/28/24 06:08 Creatinine 0.75 mg/dL (0.55-1.02) 06/28/24 06:08 Glucose 109 mg/dL (74-106) H 06/28/24 06:08 Phosphorus 2.6 mg/dL (2.5-4.9) 06/28/24 06:08 Magnesium 1.8 mg/dL (1.6-2.4) 06/28/24 06:08 Total Bilirubin 1.1 mg/dL (0.2-1.0) H 06/26/24 05:40 AST 24 U/L (15-37) 06/26/24 05:40 ALT 20 U/L (13-56) 06/26/24 05:40 Alkaline Phosphatase 112 U/L (45-117) 06/26/24 05:40 Home Medications: Apixaban [Eliquis] 5 mg PO BID 04/25/24 Atorvastatin Calcium [Lipitor] 80 mg PO BEDTIME 04/25/24 Escitalopram [Lexapro*] 20 mg PO DAILY 04/25/24 Famotidine [Pepcid*] 20 mg PO BID 04/25/24 Levothyroxine [Synthroid*] 0.1 mg PO DAILY 04/25/24 Ferrous Sulfate [Ferrous Sulfate*] 325 mg PO DAILY tab 05/01/24 Trazodone [Desyrel*] 50 mg PO BEDTIME 06/26/24 hydrOXYzine HCL [Atarax] 50 mg PO SEECOM 06/26/24 traMADol HCL [Ultram*] 50 mg PO Q6HR PRN 06/26/24 Aspirin [Aspirin EC 81 MG] 81 mg PO DAILY #30 tab 07/02/24 Escitalopram [Lexapro*] 20 mg PO BID #60 tab 07/02/24 New Medications: Aspirin [Aspirin EC 81 MG] 81 mg PO DAILY #30 tab Escitalopram [Lexapro*] 20 mg PO BID #60 tab Physician Discharge Instructions: PROBLEM: Stroke/fall/Weakness GOAL: Clear understanding of disease process INSTRUCTIONS: Diet: Regular Activity: Fall precautions Date Given: -DC IV and DC home -Follow-up with PCP in 1 to 2 weeks -Follow-up with Neurology in 1 to 2 weeks -Resume home health with [facility] home health with physical therapy/Occupational Therapy -Please call Dr. Doyle at [phone] if any questions regarding hospital stay -Please call nursing station at [phone] if any nursing or medication questions -Return to the emergency room if symptoms worsen Diet: Regular Activity: Fall precautions Followup: Nikki Leon FNP [Primary Care Provider] - Terrence Marte MD [ASSOCIATE-ACTIVE - CAN ADMIT] - Time spent managing pt's care (in minutes): 45
== END 2024-07-02 18:26 | disposition home health service (06) | DRG 64 ==
LOC: ER 15:14 → ERHOLD 20:11 → 2ND 22:29
PROVIDERS: ADMIT Family Medicine; ATTEND Hospitalist
PROC: 02HV33Z Insertion of Infusion Device into Superior Vena Cava, Percutaneous Approach (ICD-10-PCS; principal; 2024-06-29)
DX: I63.9 Cerebral infarction, unspecified (principal); G93.41 Metabolic encephalopathy; F03.93 Unspecified dementia, unspecified severity, with mood disturbance; I69.354 Hemiplegia and hemiparesis following cerebral infarction affecting left non-dominant side; E87.6 Hypokalemia; E83.42 Hypomagnesemia; E78.00 Pure hypercholesterolemia, unspecified; E03.9 Hypothyroidism, unspecified; I12.9 Hypertensive chronic kidney disease with stage 1 through stage 4 chronic kidney disease, or unspecified chronic kidney disease; N18.2 Chronic kidney disease, stage 2 (mild); E11.22 Type 2 diabetes mellitus with diabetic chronic kidney disease; R29.702 NIHSS score 2; Z88.2 Allergy status to sulfonamides; Z79.01 Long term (current) use of anticoagulants; Z79.890 Hormone replacement therapy; Z96.653 Presence of artificial knee joint, bilateral
CPT/HCPCS: 36415; 70450; 70496; 70498; 70553; 71045; 74176; 80048; 80053; 80076; 81001; 82565; 82947; 83735; 84100; 84132; 84439; 84443; 84484; 85025; 85610; 85730; 92523; 92610; 93005; 93306; 96374; 96375; 97110; 97116; 97161; 97165; 97530; 99285; A9577; J3475; J3480; J7030; J7050; J7120; Q9967